=== PATIENT | male | born 1945 | race Caucasian/White ===

== ENCOUNTER 2017-03-11 09:05 | Emergency (ER) | payer MEDICARE ==
[~2017-03-11] VITALS: Ht 182.9 cm; Wt 111.1 kg
[2017-03-11] MEDS ORDERED: IV NORMAL SALINE 1000ML BAG 1,000 ML IV SCH (10:00)
[2017-03-11 10:06] LABS: BASO % 1 % (0-3); EOS % 5 % (0-3); HEMATOCRIT 42.9 % (39.0-53.0); HEMOGLOBIN 14.9 g/dL (13.0-17.5); LYMPH # 2.1 x10^3/uL (1.0-4.8); LYMPH % 35 % (24-48); MEAN CORPUSCULAR HEMOGLOBIN 32 pg (25-35); MEAN CORPUSCULAR HGB CONC 35 g/dL (31-37); MEAN CORPUSCULAR VOLUME 91 fL (79-100); MONO % 10 % (0-9); NEUT % 49 % (31-73); PLATELET COUNT 236 x10^3/uL (140-400); RED BLOOD COUNT 4.72 x10^6/uL (4.30-5.70); RED CELL DISTRIBUTION WIDTH 13.8 % (11.5-14.5); WHITE BLOOD COUNT 5.9 x10^3/uL (4.0-11.0)
[2017-03-11] MEDS ORDERED: ASPIRIN CHEWABLE 81 MG TABLET. PO ONE (10:15)
--- NOTE | 2017-03-11 10:18 | RAD ---
Examination: Single frontal view the chest History: History of chest pain, shortness of breath Comparison: 02/18/2004 Findings: The cardiomediastinal silhouette grossly appears unremarkable. Minimal bibasal lung interstitial changes grossly similar to prior exam likely chronic. Impression: 1. No acute cardiopulmonary findings.
[2017-03-11 10:20] LABS: CALCIUM 8.7 mg/dL (8.5-10.1); CREATININE 0.9 mg/dL (0.7-1.3); GFR 82.7; POTASSIUM 4.2 mmol/L (3.5-5.1)
[2017-03-11 10:25] LABS: ALBUMIN 3.5 g/dL (3.4-5.0); DIRECT BILIRUBIN 0.2 mg/dL (0.0-0.2); MAGNESIUM 1.8 mg/dL (1.8-2.4); TOTAL BILIRUBIN 0.5 mg/dL (0.2-1.0); TOTAL PROTEIN 6.8 g/dL (6.4-8.2)
--- NOTE | 2017-03-11 10:26 | PHYS DOC ---
Past Medical History Past Medical History: Pneumonia, Other Additional Past Medical Histor: SEASONAL ALLERGIES,HAND TREMORS,TBI Past Surgical History: Appendectomy, Tonsillectomy, Other Additional Past Surgical Histo: nicole knee replacement, neck surgery Alcohol Use: Occasionally Drug Use: None Adult General Chief Complaint Chief Complaint: CHEST WALL PAIN HPI HPI Patient is a 71 year old male who presents with complaint of left-sided chest pain. Patient states his symptoms started last night. Patient states that he has had history of occasional pain along the left side of his chest, however he states that it became constant since last night. Patient states that due to worsening symptoms as morning the patient came to the emergency department for further evaluation. The patient denies any associated nausea or sweating but states he has had associated shortness of breath with his symptoms. Patient denies any significant history of cardiac disease. Patient states he currently follows a Dr. Melton for primary care and states that he just recently switched to him within the last few months. Patient states that currently his pain as 8 out of 10. Patient states his pain worsens when he takes a deep breath but denies any pain with movement. Patient does admit to history of hiatal hernia and states that he tried taking Gaviscon with no relief in symptoms. Review of Systems Review of Systems Constitutional: Denies fever or chills [] Eyes: Denies change in visual acuity, redness, or eye pain [] HENT: Denies nasal congestion or sore throat [] Respiratory: Denies cough or shortness of breath [] Cardiovascular: Chest pain, denies edema [] GI: Denies abdominal pain, nausea, vomiting, bloody stools or diarrhea [] : Denies dysuria or hematuria [] Musculoskeletal: Denies back pain or joint pain [] Integument: Denies rash or skin lesions [] Neurologic: Denies headache, focal weakness or sensory changes [] Endocrine: Denies polyuria or polydipsia [] Current Medications Current Medications Current Medications Medications (Trade) Dose Ordered Sig/Patricia Start Time Stop Time Status Last Admin Dose Admin Aspirin (Children'S Aspirin) 324 mg 1X ONCE 03/11/17 10:15 03/11/17 10:16 DC 03/11/17 10:12 324 MG Fentanyl Citrate (Fentanyl 2ml Vial) 50 mcg PRN Q15MIN PRN 03/11/17 10:45 03/12/17 10:44 03/11/17 10:58 50 MCG Multi-Ingredient Mouthwash/Gargle (Gi Cocktail Single Dose) 15 ml 1X ONCE 03/11/17 11:00 03/11/17 11:01 DC 03/11/17 10:54 15 ML Ondansetron HCl (Zofran) 4 mg 1X ONCE 03/11/17 11:00 03/11/17 11:01 DC 03/11/17 10:55 4 MG Sodium Chloride 1,000 ml @ 100 mls/hr Q10H 03/11/17 10:00 03/11/17 19:59 03/11/17 10:12 100 MLS/HR Allergies Allergies Allergies Coded Allergies Type Severity Reaction Last Updated Verified No Known Drug Allergies 08/19/14 No Physical Exam Physical Exam Constitutional: Well developed, well nourished, no acute distress, non-toxic appearance. [] HENT: Normocephalic, atraumatic, bilateral external ears normal, oropharynx moist, no oral exudates, nose normal. [] Eyes: PERRLA, EOMI, conjunctiva normal, no discharge. [] Neck: Normal range of motion, no tenderness, supple, no stridor. [] Cardiovascular:Heart rate regular rhythm, no murmur [] Lungs & Thorax: Bilateral breath sounds clear to auscultation [] Abdomen: Bowel sounds normal, soft, no tenderness, no masses, no pulsatile masses. [] Skin: Warm, dry, no erythema, no rash. [] Back: No tenderness, no CVA tenderness. [] Extremities: No tenderness, no cyanosis, no clubbing, ROM intact, no edema. [] Neurologic: Alert and oriented X 3, normal motor function, normal sensory function, no focal deficits noted. [] Current Patient Data Vital Signs Vital Signs Date Time Temp Pulse Resp B/P (MAP) Pulse Ox O2 Delivery O2 Flow Rate FiO2 03/11/17 13:47 60 18 142/77 (98) 95 Room Air 03/11/17 09:14 97.4 97.4 Lab Values Laboratory Tests Test 03/11/17 09:23 03/11/17 13:29 White Blood Count 5.9 x10^3/uL (4.0-11.0) Red Blood Count 4.72 x10^6/uL (4.30-5.70) Hemoglobin 14.9 g/dL (13.0-17.5) Hematocrit 42.9 % (39.0-53.0) Mean Corpuscular Volume 91 fL (79-100) Mean Corpuscular Hemoglobin 32 pg (25-35) Mean Corpuscular Hemoglobin Concent 35 g/dL (31-37) Red Cell Distribution Width 13.8 % (11.5-14.5) Platelet Count 236 x10^3/uL (140-400) Neutrophils (%) (Auto) 49 % (31-73) Lymphocytes (%) (Auto) 35 % (24-48) Monocytes (%) (Auto) 10 % (0-9) H Eosinophils (%) (Auto) 5 % (0-3) H Basophils (%) (Auto) 1 % (0-3) Neutrophils # (Auto) 2.9 x10^3uL (1.8-7.7) Lymphocytes # (Auto) 2.1 x10^3/uL (1.0-4.8) Monocytes # (Auto) 0.6 x10^3/uL (0.0-1.1) Eosinophils # (Auto) 0.3 x10^3/uL (0.0-0.7) Basophils # (Auto) 0.0 x10^3/uL (0.0-0.2) Sodium Level 137 mmol/L (136-145) Potassium Level 4.2 mmol/L (3.5-5.1) Chloride Level 101 mmol/L (98-107) Carbon Dioxide Level 25 mmol/L (21-32) Anion Gap 11 (6-14) Blood Urea Nitrogen 20 mg/dL (8-26) Creatinine 0.9 mg/dL (0.7-1.3) Estimated GFR (Cockcroft-Gault) 82.7 Glucose Level 145 mg/dL (70-99) H Calcium Level 8.7 mg/dL (8.5-10.1) Magnesium Level 1.8 mg/dL (1.8-2.4) Total Bilirubin 0.5 mg/dL (0.2-1.0) Direct Bilirubin 0.2 mg/dL (0.0-0.2) Aspartate Amino Transferase (AST) 26 U/L (15-37) Alanine Aminotransferase (ALT) 21 U/L (16-63) Alkaline Phosphatase 94 U/L (46-116) Creatine Kinase 121 U/L (39-308) 103 U/L (39-308) Creatine Kinase MB (Mass) 1.8 ng/mL (0.0-3.6) 1.3 ng/mL (0.0-3.6) Creatine Kinase MB Relative Index 1.5 % (0-4) 1.3 % (0-4) Troponin I Quantitative < 0.017 ng/mL (0.000-0.055) < 0.017 ng/mL (0.000-0.055) UY-Aop-J-Type Natriuretic Peptide 49 pg/mL (0-124) Total Protein 6.8 g/dL (6.4-8.2) Albumin 3.5 g/dL (3.4-5.0) Lipase 188 U/L (73-393) Laboratory Tests 03/11/17 09:23 Laboratory Tests 03/11/17 09:23 EKG EKG Interpreted by me: Heart rate 66, sinus rhythm, left axis deviation, no acute ST elevations or depressions [] Radiology/Procedures Radiology/Procedures [facility] [address] [place] [address] IMAGING REPORT Signed PATIENT: KEESHA SEARS ACCOUNT: [id number] : 1945 LOCATION: ER AGE: 71 SEX: M EXAM STATUS: PRE ER ORD. PHYSICIAN: MARIANNE CARMICHAEL MD REASON: chest pain PROCEDURE: PORTABLE CHEST 1V Examination: Single frontal view the chest History: History of chest pain, shortness of breath Comparison: 02/18/2004 Findings: The cardiomediastinal silhouette grossly appears unremarkable. Minimal bibasal lung interstitial changes grossly similar to prior exam likely chronic. Impression: 1. No acute cardiopulmonary findings. DICTATED and SIGNED BY: RAJESH LOJA MD DATE: 03/11/17 1014 CC: MARIANNE CARMICHAEL MD; NICHELLE RIDDLE MD ~ [] Course & Med Decision Making Course & Med Decision Making Pertinent Labs and Imaging studies reviewed. (See chart for details) Patient's symptoms were treated with GI cocktail, fentanyl, Zofran, and aspirin. On reevaluation, patient states that his pain has almost completely resolved. I spoke with Dr. Tomlin of cardiology who came and evaluated the patient in the emergency department. The patient told Dr. Tomlin that he would prefer to go home as he is feeling better at this time. Dr. Tomlin recommended that the patient have a second set of cardiac enzymes completed and if negative the patient could go home with close follow-up. This was completed in the emergency department as requested approximate 4 hours apart from the initial draw. Patient's onset of symptoms started more than 12 hours ago. Due to consecutive negative troponins over this time., The patient's symptoms appear atypical for ACS. The patient will be discharged home as requested with recommended follow-up in the next 2-3 days for reevaluation by cardiology and need for potential cardiac stress testing. Advised return emergency department for any worsening symptoms. Patient voiced understanding and in agreement with treatment plan. Dragon Disclaimer Dragon Disclaimer This electronic medical record was generated, in whole or in part, using a voice recognition dictation system. Departure Departure Impression: Primary Impression: Atypical chest pain Disposition: 01 HOME, SELF-CARE Condition: IMPROVED Referrals: RENAE MELTON MD, PRASHANTH S MD Patient Instructions: Chest Pain (Nonspecific) Additional Instructions: Follow-up with cardiology in the next 2 days for reevaluation and outpatient cardiac stress testing. Return to the emergency department for any worsening symptoms. Scripts Aspirin (ASPIRIN) 81 Mg Tab.chew 1 TAB PO DAILY, #30 TAB 0 Refills Prov: MARIANNE CARMICHAEL MD 03/11/17 MARIANNE CARMICHAEL MD March 11, 2017 10:26
[2017-03-11 10:34] LABS: CKMB MASS 1.8 ng/mL (0.0-3.6)
[2017-03-11] MEDS ORDERED: fentaNYL PF VIAL 100 MCG/2 ML VIAL IV PRN (10:45)
[2017-03-11] MEDS ORDERED: LIDO:MAALOX:DONNATAL 1:1:1 15 ML SINGLE DOSE SWSW ONE (11:00)
[2017-03-11] MEDS ORDERED: ONDANSETRON PF 4 MG/2 ML VIAL. IV ONE (11:00)
--- NOTE | 2017-03-11 11:59 | PDOC2 ---
CARDIOLOGY CONSULT NOTE CHEIF COMPLAINT: back pain,chest pain Problems: HPI: Pleasant 71 y.o man presenting with back pain and epigastric pain. He has had back pain x 3 days over the left lower back and this has progressed towards his shoulder. Appears to be MSK pain per his description. Today also noted epigastric discomfort that did not resolve with gaviscon. Denies any syncope or palpitations. Pain the back is worsened with deep breaths. Pain in the epigastric region is unchanged with rest or activity. No associated diaphoresis, nausea, vomiting. Reports compliance with minimal meds. No recent exertional dyspnea or angina. No prior CV issues. PMHX: Resting tremors. allergies Hiatal hernia SOCHX: Remote cigar smoker no excessive alcohol use. No illicits. 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 FAMHX: NC CURRENT MEDS: Current Medications Medications (Trade) Dose Ordered Sig/Patricia Start Time Stop Time Status Last Admin Dose Admin Aspirin (Children'S Aspirin) 324 mg 1X ONCE 03/11/17 10:15 03/11/17 10:16 DC 03/11/17 10:12 324 MG Fentanyl Citrate (Fentanyl 2ml Vial) 50 mcg PRN Q15MIN PRN 03/11/17 10:45 03/12/17 10:44 03/11/17 10:58 50 MCG Multi-Ingredient Mouthwash/Gargle (Gi Cocktail Single Dose) 15 ml 1X ONCE 03/11/17 11:00 03/11/17 11:01 DC 03/11/17 10:54 15 ML Ondansetron HCl (Zofran) 4 mg 1X ONCE 03/11/17 11:00 03/11/17 11:01 DC 03/11/17 10:55 4 MG Sodium Chloride 1,000 ml @ 100 mls/hr Q10H 03/11/17 10:00 03/11/17 19:59 03/11/17 10:12 100 MLS/HR ALLERGIES: Allergies Coded Allergies Type Severity Reaction Last Updated Verified No Known Drug Allergies 08/19/14 No ROS: Negative for 08/11 systems reviewed unless otherwise noted above. PHYSICAL EXAM: Vital Signs: Vital Signs Date Time Temp Pulse Resp B/P (MAP) Pulse Ox O2 Delivery O2 Flow Rate FiO2 03/11/17 10:58 16 95 Room Air 03/11/17 09:14 97.4 74 151/85 (107) 97.4 Physical Exam: Gen:A/O x 3. NAd CVS: RRR, no m/r/g PULM: ctab ABD Soft, epigastric discomfort to deep palpitation. CHEST: No rashes. EXT: No edema. NEURO:Non -focal exam. PSYCH: Normal mood and affect. DIAGNOSTIC TESTING: EKG: SR, NSST changes. No acute findings. CXR negative Labs wnl including troponin. ASSESSMENT: 1. Non-cardiac chest pain PLAN: 1. EKG, biomarkers and symptoms do not represent cardiac chest pain. 2. Pain improved after GI cocktail so far. 3. Given his age and new onset of symptoms, would favor ruling out ACS with repeat troponins in 6 hours or so. If negative, then ok to DC from CV perspective with close f/u with PCP for consideration of ischemic testing. ? PUD, defer to ER/PCP. Thanks for consult. If patient chooses to stay in the hospital for a full ACS rule out, then will plan for stress test in a.OLGA Moscoso MD March 11, 2017 11:59
--- NOTE | 2017-03-11 12:56 | EKG ---
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
[2017-03-11 13:47] VITALS: BP 142/77
[2017-03-11 14:18] LABS: CKMB MASS 1.3 ng/mL (0.0-3.6)
[2017-03-11] MEDS ORDERED: ASPI81TA2 PO (14:22)
== END 2017-03-11 14:31 | disposition home or self-care (01) ==
LOC: ER 10:34
DX: R07.89 Other chest pain (principal); R06.02 Shortness of breath; Z87.820 Personal history of traumatic brain injury; Z79.82 Long term (current) use of aspirin
CPT/HCPCS: 36415; 71010; 80048; 80076; 82553; 83690; 83735; 83880; 84484; 85027; 93005; 96361; 96374; 96375; 99285; J2405; J3010; J7030

== ENCOUNTER 2017-09-07 21:50 | Emergency (ER) | payer MEDICARE, OTHER ==
[~2017-09-07] VITALS: Ht 177.8 cm; Wt 111.1 kg
[2017-09-07 21:50] VITALS: BP 131/76
[~2017-09-07 21:50] MED LIST: ASPI-630 PO
[2017-09-07] MEDS ORDERED: LIDOCAINE 1%/EPI 1:100,000 20 ML VIAL. ONE (22:29)
--- NOTE | 2017-09-07 22:29 | PHYS DOC ---
Past Medical History Past Medical History: Pneumonia, Other Additional Past Medical Histor: SEASONAL ALLERGIES,HAND TREMORS,TBI Past Surgical History: Appendectomy, Tonsillectomy, Other Additional Past Surgical Histo: nicole knee replacement, neck surgery Alcohol Use: Occasionally Drug Use: None Adult General Chief Complaint Chief Complaint: MECHANICAL FALL HPI HPI Patient is a 71 year old male who presents with complaint of head injury. The patient was brought into the emergency department by EMS. The patient suffered a fall at a local bar and fell onto the left side of his head. Patient suffered a laceration to his scalp. Patient did not have any reported loss of consciousness as a result of this fall. The patient was noted to be drinking this evening and patient appears to be intoxicated at this time. The patient had a c-collar placed prior to my evaluation, however the patient remove this on his own stating he did not need this. The patient is stating that he wants to go home. Patient denies any other injuries at this time. Review of Systems Review of Systems Constitutional: Denies fever or chills [] Eyes: Denies change in visual acuity, redness, or eye pain [] HENT: Laceration to left parietal scalp[] Respiratory: Denies cough or shortness of breath [] Cardiovascular: Denies chest pain or edema[] GI: Denies abdominal pain, nausea, vomiting, bloody stools or diarrhea [] : Denies dysuria or hematuria [] Musculoskeletal: Denies back pain or joint pain [] Integument: Denies rash or skin lesions [] Neurologic: Denies headache, focal weakness or sensory changes [] All other systems were reviewed and found to be within normal limits, except as documented in this note. Current Medications Current Medications Current Medications Medications (Trade) Dose Ordered Sig/Patricia Start Time Stop Time Status Last Admin Dose Admin Lidocaine/ Epinephrine (Xylocaine 1%-Epi 1:100,000) 20 ml STK-MED ONCE 09/07/17 22:29 09/07/17 22:30 DC Allergies Allergies Allergies Coded Allergies Type Severity Reaction Last Updated Verified No Known Drug Allergies 08/19/14 No Physical Exam Physical Exam Constitutional: Alert, afebrile, alcoholic halitosis present, no acute distress. [] HENT: Normocephalic, 2-1/2 cm L-shaped laceration to left parietal scalp, bilateral external ears normal, oropharynx moist, no oral exudates, nose normal. [] Eyes: PERRLA, EOMI, conjunctiva normal, no discharge. [] Neck: Normal range of motion, no tenderness, supple, no stridor. [] Cardiovascular:Heart rate regular rhythm, no murmur [] Lungs & Thorax: Bilateral breath sounds clear to auscultation [] Abdomen: Bowel sounds normal, soft, no tenderness, no masses, no pulsatile masses. [] Skin: Warm, dry, no erythema, no rash. [] Back: No tenderness, no CVA tenderness. [] Extremities: No tenderness, no cyanosis, no clubbing, ROM intact, no edema. [] Neurologic: Alert, oriented to self, disoriented to events, normal motor function, normal sensory function, no focal deficits noted. [] Current Patient Data Vital Signs Vital Signs Date Time Temp Pulse Resp B/P (MAP) Pulse Ox O2 Delivery O2 Flow Rate FiO2 09/07/17 21:50 97.9 79 20 131/76 (94) 93 Room Air 97.9 EKG EKG Not performed[] Radiology/Procedures Radiology/Procedures [facility] [address] [place] [address] IMAGING REPORT Signed PATIENT: KEESHA SEARS ACCOUNT: [id number] : 1945 LOCATION: ER AGE: 71 SEX: M EXAM STATUS: REG ER ORD. PHYSICIAN: MARIANNE CARMICHAEL MD REASON: fall, left-sided head injury, intoxicated PROCEDURE: CT HEAD AND CERVICAL SPINE WO CT scan of the head without contrast 09/07/2017 Clinical History: Head injury. Laceration to left frontal parietal scalp. Technique: Unenhanced, contiguous, 5 mm axial sections were obtained through the head. One or more of the following individualized dose reduction techniques were utilized for this study: 1. Automated exposure control. 2. Adjustment of the mA and/or kV according to patient size. 3. Use of iterative reconstruction technique. Findings: No previous imaging studies are available for comparison. There is generalized parenchymal atrophy. Areas of decreased attenuation are seen within the periventricular and subcortical white matter of both cerebral hemispheres consistent with areas of small vessel ischemic disease. No acute parenchymal abnormality is seen. No extra-axial fluid collection is noted. No skull fracture is seen. Soft tissue swelling and skin savanah are seen involving the left frontoparietal scalp consistent with the patient's history of a laceration to this area. Impression: No acute intracranial abnormality is seen. CT scan of the cervical spine without contrast 09/07/2017 Clinical history: Fall with neck injury. Technique: Unenhanced, contiguous, 0.625 mm axial sections were obtained through the cervical spine. Axial, coronal and sagittal reconstructed images were obtained. One or more of the following individualized dose reduction techniques were utilized for this study: 1. Automated exposure control. 2. Adjustment of the mA and/or kV according to patient size. 3. Use of iterative reconstruction technique. Findings: Sagittal and coronal reconstructed images demonstrate minimal lateral curvature of the cervical spine convex to the left. There is reversal of the normal cervical lordosis. Degenerative changes consisting of disc space narrowing, vertebral endplate sclerosis and mild to moderate anterior and posterior vertebral body osteophyte formation are seen throughout the cervical disc spaces. Fusion across the C5-6 and C6-7 disc spaces is noted. No fracture or subluxation of the cervical vertebrae is seen. Degenerative changes are seen involving the uncovertebral and facet joints throughout the cervical disc spaces. Impression: No fracture or subluxation of the cervical vertebra is identified. Electronically signed by: Sha Swann MD (09/07/2017 11:15 PM) [facility] DICTATED and SIGNED BY: SHA SWANN MD DATE: 09/07/17 230 CC: MARIANNE CARIMCHAEL MD; RENAE ARMSTRONG MD ~ [] Course & Med Decision Making Course & Med Decision Making Pertinent Labs and Imaging studies reviewed. (See chart for details) The patient's scalp laceration was repaired as outlined in the procedure note. Patient's CT imaging negative for severe acute injury. The patient was helped with securing transportation to return home. Patient was counseled on appropriate use of alcohol. Patient voiced understanding of this. Advised follow -up in 7 days for removal of patient's savanah. Advised return emergency department for any worsening symptoms. Patient voiced understanding and in agreement with treatment plan.[] Dragon Disclaimer Dragon Disclaimer This electronic medical record was generated, in whole or in part, using a voice recognition dictation system. Laceration Repair Lac Repair Indication: Left parietal scalp laceration Procedure: The patient was placed in the appropriate position and anesthesia around the laceration was achieved with injection of lidocaine 1% with epinephrine. The area was then cleansed with saline soaked gauze. The laceration was closed using skin savanah. Total repaired wound length: 2.5 cm. Other Items: Stable count: 4 The patient tolerated the procedure without difficulty. Complications: None. Departure Departure Impression: Primary Impression: Closed head injury Additional Impressions: Scalp laceration Alcohol intoxication Disposition: 01 HOME, SELF-CARE Condition: IMPROVED Referrals: RENAE ARMSTRONG MD (PCP) Patient Instructions: Alcohol Intoxication, Head Injury, Adult, Laceration Care , Adult, Staple Care and Removal Additional Instructions: Follow-up in 7 days with your primary doctor for removal of your savanah. Return to the emergency department for any worsening symptoms. Problem Qualifiers Primary Impression: Closed head injury Encounter type: initial encounter Qualified Codes: S09.90XA - Unspecified injury of head, initial encounter Additional Impressions: Scalp laceration Encounter type: initial encounter Qualified Codes: S01.01XA - Laceration without foreign body of scalp, initial encounter Alcohol intoxication Complication of substance-induced condition: uncomplicated Qualified Codes: F10.920 - Alcohol use, unspecified with intoxication, uncomplicated MARIANNE CARMICHAEL MD Sep 07, 2017 22:28
[2017-09-07] MEDS ORDERED: LIDOCAINE 1%/EPI 1:100,000 20 ML VIAL. INJ ONE (23:00)
--- NOTE | 2017-09-07 23:18 | RAD ---
CT scan of the head without contrast 09/07/2017 Clinical History: Head injury. Laceration to left frontal parietal scalp. Technique: Unenhanced, contiguous, 5 mm axial sections were obtained through the head. One or more of the following individualized dose reduction techniques were utilized for this study: 1. Automated exposure control. 2. Adjustment of the mA and/or kV according to patient size. 3. Use of iterative reconstruction technique. Findings: No previous imaging studies are available for comparison. There is generalized parenchymal atrophy. Areas of decreased attenuation are seen within the periventricular and subcortical white matter of both cerebral hemispheres consistent with areas of small vessel ischemic disease. No acute parenchymal abnormality is seen. No extra-axial fluid collection is noted. No skull fracture is seen. Soft tissue swelling and skin savanah are seen involving the left frontoparietal scalp consistent with the patient's history of a laceration to this area. Impression: No acute intracranial abnormality is seen. CT scan of the cervical spine without contrast 09/07/2017 Clinical history: Fall with neck injury. Technique: Unenhanced, contiguous, 0.625 mm axial sections were obtained through the cervical spine. Axial, coronal and sagittal reconstructed images were obtained. One or more of the following individualized dose reduction techniques were utilized for this study: 1. Automated exposure control. 2. Adjustment of the mA and/or kV according to patient size. 3. Use of iterative reconstruction technique. Findings: Sagittal and coronal reconstructed images demonstrate minimal lateral curvature of the cervical spine convex to the left. There is reversal of the normal cervical lordosis. Degenerative changes consisting of disc space narrowing, vertebral endplate sclerosis and mild to moderate anterior and posterior vertebral body osteophyte formation are seen throughout the cervical disc spaces. Fusion across the C5-6 and C6-7 disc spaces is noted. No fracture or subluxation of the cervical vertebrae is seen. Degenerative changes are seen involving the uncovertebral and facet joints throughout the cervical disc spaces. Impression: No fracture or subluxation of the cervical vertebra is identified. Electronically signed by: Sha Swann MD (09/07/2017 11:15 PM) [facility]
== END 2017-09-08 00:52 | disposition home or self-care (01) ==
LOC: ER 21:50
DX: S01.01XA Laceration without foreign body of scalp, initial encounter (principal); F10.129 Alcohol abuse with intoxication, unspecified; W18.39XA Other fall on same level, initial encounter; Y93.89 Activity, other specified; Y99.8 Other external cause status; Y92.89 Other specified places as the place of occurrence of the external cause
CPT/HCPCS: 12001; 70450; 72125; 99284; J3490

== ENCOUNTER 2018-03-11 11:07 | Emergency (ER) | payer MEDICARE ==
[2018-03-11 12:11] LABS: ADD MAN DIFF? NO
[2018-03-11 12:13] LABS: BASO # 0.1 x10^3/uL (0.0-0.2); BASO % 1 % (0-3); EOS # 0.3 x10^3/uL (0.0-0.7); EOS % 4 % (0-3); HEMATOCRIT 43.4 % (39.0-53.0); LYMPH # 2.5 x10^3/uL (1.0-4.8); LYMPH % 38 % (24-48); MEAN CORPUSCULAR HEMOGLOBIN 31 pg (25-35); MEAN CORPUSCULAR HGB CONC 35 g/dL (31-37); MEAN CORPUSCULAR VOLUME 90 fL (79-100); MONO # 0.5 x10^3/uL (0.0-1.1); MONO % 8 % (0-9); NEUT # 3.3 x10^3uL (1.8-7.7); NEUT % 50 % (31-73); PLATELET COUNT 275 x10^3/uL (140-400); RED CELL DISTRIBUTION WIDTH 13.9 % (11.5-14.5); WHITE BLOOD COUNT 6.6 x10^3/uL (4.0-11.0)
[2018-03-11] MEDS ORDERED: MORPHINE SULFATE 4 MG/ML DISP.SYRIN. IV ×2 (12:15)
[2018-03-11 12:23] LABS: ANION GAP 8 (6-14); BLOOD UREA NITROGEN 12 mg/dL (8-26); CALCIUM 8.8 mg/dL (8.5-10.1); CARBON DIOXIDE 27 mmol/L (21-32); CHLORIDE 104 mmol/L (98-107); CREATININE 0.9 mg/dL (0.7-1.3); GFR 82.5; GLUCOSE 101 mg/dL (70-99); POTASSIUM 4.4 mmol/L (3.5-5.1); SODIUM 139 mmol/L (136-145)
[2018-03-11 12:32] LABS: TROPONINI < 0.017 ng/mL (0.000-0.055)
[2018-03-11 12:55] LABS: TROPONIN BY ISTAT 0.01 ng/ml (<0.08)
[2018-03-11] MEDS ORDERED: CONTRAST GIVEN MC ×2 (13:00)
[2018-03-11] MEDS: IOHEXOL 300 MG/ML 100ML VIAL. IV ×2 (13:16)
== END 2018-03-11 15:11 | disposition home or self-care (01) ==
LOC: ER 11:07
DX: M54.6 Pain in thoracic spine (principal); R07.89 Other chest pain; R05 Cough; M48.061 Spinal stenosis, lumbar region without neurogenic claudication; M47.896 Other spondylosis, lumbar region
CPT/HCPCS: 36415; 71045; 71275; 74174; 80048; 84484; 85025; 85379; 93005; 99285-25; Q9967

== ENCOUNTER 2018-08-29 08:33 | Emergency (ER) | payer MEDICARE ==
[~2018-08-29] VITALS: Ht 182.9 cm; Wt 113.4 kg
[~2018-08-29 08:33] MED LIST changes: +HYDR-2762 PO; +IBUP-1060 PO
--- NOTE | 2018-08-29 08:55 | EKG ---
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
[2018-08-29] MEDS ORDERED: LIDO:MAALOX 1:1 20 ML SINGLE DOSE. SWSW ONE (09:00)
[2018-08-29 09:33] LABS: CALCIUM 9.2 mg/dL (8.5-10.1); POTASSIUM 4.7 mmol/L (3.5-5.1)
[2018-08-29 09:38] LABS: BASO # 0.1 x10^3/uL (0.0-0.2); BASO % 1 % (0-3); EOS # 0.2 x10^3/uL (0.0-0.7); EOS % 4 % (0-3); HEMATOCRIT 45.6 % (39.0-53.0); HEMOGLOBIN 15.7 g/dL (13.0-17.5); LYMPH # 2.2 x10^3/uL (1.0-4.8); LYMPH % 36 % (24-48); MEAN CORPUSCULAR HEMOGLOBIN 32 pg (25-35); MEAN CORPUSCULAR HGB CONC 34 g/dL (31-37); MEAN CORPUSCULAR VOLUME 92 fL (79-100); MONO # 0.7 x10^3/uL (0.0-1.1); MONO % 11 % (0-9); NEUT % 49 % (31-73); PLATELET COUNT 241 x10^3/uL (140-400); RED BLOOD COUNT 4.93 x10^6/uL (4.30-5.70); RED CELL DISTRIBUTION WIDTH 14.1 % (11.5-14.5); WHITE BLOOD COUNT 6.2 x10^3/uL (4.0-11.0)
--- NOTE | 2018-08-29 09:38 | RAD ---
PORTABLE CHEST 1V History: EPIGASTRIC AND LT SIDED CHEST PAIN X 2 DAYS, history of hiatal hernia Comparison: March 11, 2018 Findings: 2 AP portable views of the chest are submitted. There is no pleural fluid, pneumothorax, infiltrate. Heart size is stable. Impression: 1. There is no radiographic evidence of acute cardiopulmonary disease. Electronically signed by: Karl Blanco MD (08/29/2018 9:36 AM) [id number]
[2018-08-29 09:39] LABS: ALBUMIN 3.9 g/dL (3.4-5.0); ALBUMIN/GLOBULIN RATIO 1.1 (1.0-1.7); TOTAL BILIRUBIN 0.6 mg/dL (0.2-1.0); TOTAL PROTEIN 7.5 g/dL (6.4-8.2)
[2018-08-29 09:45] VITALS: BP 157/79
[2018-08-29 09:51] LABS: PROTHROMBIN TIME PATIENT 13.5 SEC (11.7-14.0)
[2018-08-29 09:57] LABS: D-DIMER 0.47 ug/mlFEU (0.00-0.50)
--- NOTE | 2018-08-29 11:11 | PHYS DOC ---
Past Medical History Past Medical History: GERD, Hypertension, Pneumonia, Other Additional Past Medical Histor: SEASONAL ALLERGIES,HAND TREMORS,TBI, hiatal hernia Past Surgical History: Appendectomy, Tonsillectomy, Other Additional Past Surgical Histo: nicole knee replacement, neck surgery Alcohol Use: Occasionally Drug Use: None Adult General Chief Complaint Chief Complaint: ABDOMINAL PAIN HPI HPI Patient is a 72 year old male who presents with chief complaint of "I either have pneumonia or my hiatal hernia is acting up again" Patient is complaining of 2 days of burning pain epigastric area as well as some sharp pain underneath the left nipple that radiates to the scapula it's constant in nature it is not exertional it is worse with deep breathing. He denies any anginal symptoms per se no shortness of breath he has had a dry cough for about a month no fever symptoms are worse with palpation and coughing and deep breathing. Review of Systems Review of Systems Constitutional: Denies fever or chills [] Eyes: Denies change in visual acuity, redness, or eye pain [] HENT: Denies nasal congestion or sore throat [] Respiratory: Denies shortness of breath [] Cardiovascular: No additional information not addressed in HPI [] GI: Denies nausea, vomiting, bloody stools or diarrhea [] Musculoskeletal: All other systems were reviewed and found to be within normal limits, except as documented in this note. Current Medications Current Medications Current Medications Medications (Trade) Dose Ordered Sig/Patricia Start Time Stop Time Status Last Admin Dose Admin Multi-Ingredient Mouthwash/Gargle (Gi Cocktail) 20 ml 1X ONCE 08/29/18 09:00 08/29/18 09:01 DC 08/29/18 09:34 20 ML Allergies Allergies Allergies Coded Allergies Type Severity Reaction Last Updated Verified No Known Drug Allergies 08/19/14 No Physical Exam Physical Exam Constitutional: Well developed, well nourished, no acute distress, non-toxic appearance. [] HENT: Normocephalic, atraumatic, bilateral external ears normal, oropharynx moist, no oral exudates, nose normal. [] Eyes: PERRLA, EOMI, conjunctiva normal, no discharge. [] Neck: Normal range of motion, no tenderness, supple, no stridor. [] Cardiovascular:Heart rate regular rhythm, no murmur []chest wall appears will tenderness is noted just above the xiphoid process Lungs & Thorax: Bilateral breath sounds clear to auscultation [] Abdomen: Bowel sounds normal, soft, no tenderness, no masses, no pulsatile masses. [] Skin: Warm, dry, no erythema, no rash. [] Back: No tenderness, no CVA tenderness. [] Extremities: No tenderness, no cyanosis, no clubbing, ROM intact, no edema. [] Neurologic: Alert and oriented X 3, normal motor function, normal sensory function, no focal deficits noted. [] Psychologic: Affect normal, judgement normal, mood normal. [] Current Patient Data Vital Signs Vital Signs Date Time Temp Pulse Resp B/P (MAP) Pulse Ox O2 Delivery O2 Flow Rate FiO2 08/29/18 09:45 68 18 157/79 (105) 96 Room Air 08/29/18 08:42 97.6 97.6 Lab Values Laboratory Tests Test 08/29/18 09:10 White Blood Count 6.2 x10^3/uL (4.0-11.0) Red Blood Count 4.93 x10^6/uL (4.30-5.70) Hemoglobin 15.7 g/dL (13.0-17.5) Hematocrit 45.6 % (39.0-53.0) Mean Corpuscular Volume 92 fL (79-100) Mean Corpuscular Hemoglobin 32 pg (25-35) Mean Corpuscular Hemoglobin Concent 34 g/dL (31-37) Red Cell Distribution Width 14.1 % (11.5-14.5) Platelet Count 241 x10^3/uL (140-400) Neutrophils (%) (Auto) 49 % (31-73) Lymphocytes (%) (Auto) 36 % (24-48) Monocytes (%) (Auto) 11 % (0-9) H Eosinophils (%) (Auto) 4 % (0-3) H Basophils (%) (Auto) 1 % (0-3) Neutrophils # (Auto) 3.0 x10^3uL (1.8-7.7) Lymphocytes # (Auto) 2.2 x10^3/uL (1.0-4.8) Monocytes # (Auto) 0.7 x10^3/uL (0.0-1.1) Eosinophils # (Auto) 0.2 x10^3/uL (0.0-0.7) Basophils # (Auto) 0.1 x10^3/uL (0.0-0.2) Prothrombin Time 13.5 SEC (11.7-14.0) Prothrombin Time INR 1.1 (0.8-1.1) D-Dimer (Leigh Ann) 0.47 ug/mlFEU (0.00-0.50) Sodium Level 140 mmol/L (136-145) Potassium Level 4.7 mmol/L (3.5-5.1) Chloride Level 102 mmol/L (98-107) Carbon Dioxide Level 27 mmol/L (21-32) Anion Gap 11 (6-14) Blood Urea Nitrogen 11 mg/dL (8-26) Creatinine 1.0 mg/dL (0.7-1.3) Estimated GFR (Cockcroft-Gault) 73.0 BUN/Creatinine Ratio 11 (6-20) Glucose Level 104 mg/dL (70-99) H Calcium Level 9.2 mg/dL (8.5-10.1) Total Bilirubin 0.6 mg/dL (0.2-1.0) Aspartate Amino Transferase (AST) 25 U/L (15-37) Alanine Aminotransferase (ALT) 25 U/L (16-63) Alkaline Phosphatase 92 U/L (46-116) Troponin I Quantitative < 0.017 ng/mL (0.000-0.055) Total Protein 7.5 g/dL (6.4-8.2) Albumin 3.9 g/dL (3.4-5.0) Albumin/Globulin Ratio 1.1 (1.0-1.7) Lipase 132 U/L (73-393) Laboratory Tests 08/29/18 09:10 Laboratory Tests 08/29/18 09:10 EKG EKG []I suspect sinus rhythm I clearly see P waves in V3 the rate is 63 there are no obvious ST changes noted this was interpreted by me time of encounter Radiology/Procedures Radiology/Procedures [] Impressions: History: EPIGASTRIC AND LT SIDED CHEST PAIN X 2 DAYS, history of hiatal hernia Comparison: March 11, 2018 Findings: 2 AP portable views of the chest are submitted. There is no pleural fluid, pneumothorax, infiltrate. Heart size is stable. Impression: 1. There is no radiographic evidence of acute cardiopulmonary disease. Electronically signed by: Karl Blanco MD (08/29/2018 9:36 AM) [id number] Course & Med Decision Making Course & Med Decision Making Pertinent Labs and Imaging studies reviewed. (See chart for details) 72-year-old male with history of hypertension hiatal hernia presenting with burning central epigastric pain is extremely atypical in nature. EKG and troponin were negative h 0 e 0 a 2 r 1 t 0 = heart score is a 3 per prefer outpatient management I really this does not sound cardiac to me at all. Patient is very comfortable- appearing he felt better in the emergency room after a GI cocktail was advised to follow-up with Dr. Melton regarding his symptoms and also regarding his blood pressure he plans to do so. D-dimer was negative this does not sound a dissection or PE to me. Abdomen was nontender patient is well-appearing and safe for outpatient management at this time. Dragon Disclaimer Dragon Disclaimer This electronic medical record was generated, in whole or in part, using a voice recognition dictation system. Departure Departure Impression: Primary Impression: Elevated blood pressure reading Additional Impression: Hiatal hernia Disposition: 01 HOME, SELF-CARE Condition: STABLE Patient Instructions: Chest Pain (Nonspecific), [id number] Additional Instructions: GET BLOOD PRESSURE CHECKED WITHIN ONE MONTH Problem Qualifiers NADIA DAI MD Aug 29, 2018 11:11
== END 2018-08-29 10:45 | disposition home or self-care (01) ==
LOC: ER 08:33
DX: K44.9 Diaphragmatic hernia without obstruction or gangrene (principal); I10 Essential (primary) hypertension; K21.9 Gastro-esophageal reflux disease without esophagitis; Z90.89 Acquired absence of other organs; Z96.653 Presence of artificial knee joint, bilateral
CPT/HCPCS: 36415; 71045; 80053; 83690; 84484; 85025; 85379; 85610; 93005; 99285-25

== ENCOUNTER 2018-12-25 01:12 | Emergency (ER) | payer MEDICARE ==
[~2018-12-25] VITALS: Ht 182.9 cm; Wt 113.4 kg
[~2018-12-25 01:12] MED LIST changes: -HYDR-2762 PO; +HYDR-2765 PO
[2018-12-25 01:23] VITALS: BP 180/94
[2018-12-25] MEDS ORDERED: HYDR-2765 PO (02:16)
[2018-12-25] MEDS ORDERED: AZIT250T PO (02:16)
--- NOTE | 2018-12-25 02:17 | PHYS DOC ---
Past Medical History Past Medical History: GERD, Hypertension, Pneumonia, Other Additional Past Medical Histor: SEASONAL ALLERGIES,HAND TREMORS,TBI, hiatal hernia, SHINGLES Past Surgical History: Appendectomy, Tonsillectomy, Other Additional Past Surgical Histo: nicole knee replacement, neck surgery Alcohol Use: Occasionally Drug Use: None Adult General Chief Complaint Chief Complaint: MECHANICAL FALL [facility] HPI Patient is a 73-year-old male who presents with complaint of right-sided back pain after falling last Sunday onto his back. He states that the pain initially was not very apparent but states that after 2 days he started to have a cough and then started having the back pain. He states the cough had been productive of sputum that had a little bit of blood-tinged to it. He denies any fever. He rates the pain as moderate and states the pain is worsened when he coughs. He denies any nausea or vomiting. He states that the blood-tinged sputum is no longer evident. Review of Systems Review of Systems Constitutional: Denies fever or chills [] Respiratory: Complains of cough without shortness of breath [] Cardiovascular: No additional information not addressed in HPI [] Musculoskeletal: Complains of right posterior chest wall pain [] Allergies Allergies Allergies Coded Allergies Type Severity Reaction Last Updated Verified No Known Drug Allergies 08/19/14 No Physical Exam Physical Exam Constitutional: Well developed, well nourished, no acute distress, non-toxic appearance. [] Neck: Normal range of motion, no tenderness, supple, no stridor. [] Cardiovascular: Regular rate and rhythm[] Lungs & Thorax: Bilateral breath sounds clear to auscultation [] Abdomen: Bowel sounds normal, soft, no tenderness. [] Skin: Warm, dry, no erythema, no rash. [] Back: There is tenderness to palpation in the right sided paraspinal musculature around T7-T10 area with tenderness of the rib angles of the same area. [] Current Patient Data Vital Signs Vital Signs Date Time Temp Pulse Resp B/P (MAP) Pulse Ox O2 Delivery O2 Flow Rate FiO2 12/25/18 01:23 98.3 67 18 180/94 (122) 98 Room Air 98.3 EKG EKG [] Radiology/Procedures Radiology/Procedures [] Impressions: Right-sided rib series demonstrates no acute rib fractures. Course & Med Decision Making Course & Med Decision Making Pertinent Labs and Imaging studies reviewed. (See chart for details) [] Dragon Disclaimer Dragon Disclaimer This electronic medical record was generated, in whole or in part, using a voice recognition dictation system. Departure Departure Impression: Primary Impression: Bronchitis Additional Impression: Chest wall contusion Disposition: 01 HOME, SELF-CARE Condition: STABLE Referrals: RENAE ARMSTRONG MD (PCP) Patient Instructions: Acute Bronchitis, Rib Contusion Scripts Hydrocodone Bit/Acetaminophen (HYDROCODONE-APAP 7.5-325 ) 1 Tab Tablet 1 TAB PO PRN Q6HRS PRN for PAIN, #12 TAB 0 Refills Prov: MI FISHMAN Jr. DO 12/25/18 Azithromycin (ZITHROMAX) 250 Mg Tablet 1 PKG PO UD, #6 TAB Prov: MI FISHMAN Jr. DO 12/25/18 Problem Qualifiers Additional Impression: Chest wall contusion Encounter type: initial encounter Laterality: right Qualified Codes: S20.211A - Contusion of right front wall of thorax, initial encounter MI FISHMAN Jr., DO Dec 25, 2018 02:17
[2018-12-25] MEDS ORDERED: AZITHROMYCIN 250 MG TABLET. ONE (02:25)
[2018-12-25] MEDS ORDERED: HYDROcodone/APAP 7.5/325MG 1 TAB TABLET ONE (02:26)
[2018-12-25] MEDS ORDERED: HYDROcodone/APAP 7.5/325MG 1 TAB TABLET PO ONE (02:30)
[2018-12-25] MEDS ORDERED: AZITHROMYCIN 250 MG TABLET. PO ONE (02:30)
--- NOTE | 2018-12-25 08:13 | RAD ---
RIBS RIGHT AND PA CHEST History: rib pain on the right after fall Comparison: August 29, 2018 Findings: Single view of the chest and 2 additional views right ribs are submitted. There is mild bibasilar atelectasis. There is no pneumothorax or pleural fluid. Heart size is similar. There is again tortuous thoracic aorta. No displaced right rib fracture is identified by radiographs. Impression: 1. No displaced right rib fracture is identified by radiographs. There is bibasilar atelectasis. Electronically signed by: Karl Blanco MD (12/25/2018 8:10 AM) [email or web address]
== END 2018-12-25 02:30 | disposition home or self-care (01) ==
LOC: ER 01:12
DX: S20.211A Contusion of right front wall of thorax, initial encounter (principal); J40 Bronchitis, not specified as acute or chronic; K21.9 Gastro-esophageal reflux disease without esophagitis; I10 Essential (primary) hypertension; Z90.89 Acquired absence of other organs; Z96.653 Presence of artificial knee joint, bilateral
CPT/HCPCS: 71101; 99284; Q0144

== ENCOUNTER 2021-04-17 18:44 | Emergency (ER) | payer MEDICARE ==
[~2021-04-17] VITALS: Ht 182.9 cm; Wt 111.0 kg
[~2021-04-17 18:44] MED LIST changes: +AZIT250T PO
[2021-04-17 19:26] VITALS: BP 161/88
--- NOTE | 2021-04-17 19:32 | PHYS DOC ---
Past Medical History Past Medical History: GERD, Hypertension, Pneumonia, Other Additional Past Medical Histor: SEASONAL ALLERGIES,HAND TREMORS,TBI, hiatal hernia, SHINGLES Past Surgical History: Appendectomy, Tonsillectomy, Other Additional Past Surgical Histo: nicole knee replacement, neck surgery Smoking Status: Former Smoker Alcohol Use: Occasionally Drug Use: None General Adult EDM: Chief Complaint: MECHANICAL FALL HPI: HPI: Patient is a 75 year old male with a past medical history hypertension and GERD presents with a chief complaint of left sided rib pain. Prior to arrival patient was cutting his grass when he he tripped over dog leash and landed on a tree root. Patient left chest struck the tree root. Patient denies hitting his head he denies any loss of consciousness. Patient complains of left-sided rib pain. Pain is exacerbated with shoulder movement and deep breaths. Patient sta matt he feels short of breath. At home patient took ibuprofen with minimal relief of pain. Review of Systems: Review of Systems: Constitutional: Denies fever or chills. [] Eyes: Denies change in visual acuity. [] HENT: Denies nasal congestion or sore throat. [] Respiratory: Denies cough or shortness of breath. [] Cardiovascular: Denies chest pain or edema. [] GI: Denies abdominal pain, nausea, vomiting, bloody stools or diarrhea. [] : Denies dysuria. [] Musculoskeletal: Denies back pain or joint pain. [POSITIVE RIB PAIN] Integument: Denies rash. [] Neurologic: Denies headache, focal weakness or sensory changes. [] Endocrine: Denies polyuria or polydipsia. [] Lymphatic: Denies swollen glands. [] Psychiatric: Denies depression or anxiety. [] Heart Score: C/O Chest Pain: N/A Risk Factors: Risk Factors: DM, Current or recent (<one month) smoker, HTN, HLP, family history of CAD, obesity. Risk Scores: Score 0 - 3: 2.5% MACE over next 6 weeks - Discharge Home Score 4 - 6: 20.3% MACE over next 6 weeks - Admit for Clinical Observation Score 7 - 10: 72.7% MACE over next 6 weeks - Early Invasive Strategies Current Medications: Current Medications Medications (Trade) Dose Ordered Sig/Patricia Start Time Stop Time Status Last Admin Dose Admin Fentanyl Citrate (Fentanyl 2ml Vial) 50 mcg 1X ONCE 6/20/21 19:30 04/17/21 19:31 UNV Allergies: Allergies: Allergies Coded Allergies Type Severity Reaction Last Updated Verified No Known Drug Allergies 08/19/14 No Physical Exam: PE: General: alert, no acute distress. Skin: warm, dry and intact. HENT: bilateral external ears normal, oropharynx moist, nose normal. Head:: Normocephalic, atraumatic. Neck: Trachea midline. Eyes: EOMI, Normal conjunctiva, No drainage CARDIOVASCULAR: Regular rate and rhythm, left-sided chest wall tenderness RESPIRATORY: No respiratory distress, lungs clear Back: Full range of motion. Skin: Warm, dry, no erythema, no rash. MUSCULOSKELETAL: Full range of motion of bilateral upper and lower extremities. GASTROINTESTINAL: Abdomen soft without rebound or guarding. NEUROLOGICAL: Alert and noted to person, place and time. No neurological deficits observed Psychiatric: Cooperative. Normal judgment EKG: EKG: [] Radiology/Procedures: Radiology/Procedures: [] Impression: Exam: Left ribs with PA chest INDICATION: Fall, pain TECHNIQUE: Frontal view of the chest with oblique and lateral views the left ribs Comparisons: None FINDINGS: The cardiomediastinal silhouette and pulmonary vessels are within normal limits. The lung and pleural spaces are clear. Mildly displaced anterolateral left eighth and ninth rib fractures. IMPRESSION: 1. Mildly displaced anterolateral left eighth and ninth rib fractures. 2. No acute cardiopulmonary process. Course & Med Decision Making: Course & Med Decision Making Pertinent Labs and Imaging studies reviewed. (See chart for details) [] Patient was evaluated for chief complaint. Work-up consisted of radiologic imaging x-ray fractures of eighth and ninth rib no pneumothorax. Treatment included fentanyl IM. Patient advised to take Tylenol ibuprofen at home for pain will prescribe hydrocodone. Dragon Disclaimer: Dragon Disclaimer: This electronic medical record was generated, in whole or in part, using a voice recognition dictation system. Departure Departure Impression: Primary Impression: Left rib fracture Disposition: HOME / SELF CARE / HOMELESS Condition: STABLE Referrals: ATIYA NICHOLE MD (PCP) Patient Instructions: Rib Fracture Scripts Hydrocodone/Acetaminophen (Hydrocodone-Acetamin 5-325 mg) 1 Each Tablet 1 EACH PO Q4-6HRS, #20 TAB Prov: BK CALVO DO 04/17/21 BK CALVO 20, 2021 19:32
[2021-04-17] MEDS ORDERED: fentaNYL PF VIAL 100 MCG/2 ML VIAL IM ONE (19:45)
--- NOTE | 2021-04-17 20:22 | RAD ---
Exam: Left ribs with PA chest INDICATION: Fall, pain TECHNIQUE: Frontal view of the chest with oblique and lateral views the left ribs Comparisons: None FINDINGS: The cardiomediastinal silhouette and pulmonary vessels are within normal limits. The lung and pleural spaces are clear. Mildly displaced anterolateral left eighth and ninth rib fractures. IMPRESSION: 1. Mildly displaced anterolateral left eighth and ninth rib fractures. 2. No acute cardiopulmonary process. Electronically signed by: Delmi Gao MD (04/17/2021 8:20 PM) [facility]
[2021-04-17] MEDS ORDERED: HYDR-2759 PO (20:36)
== END 2021-04-17 20:40 | disposition home or self-care (01) ==
LOC: ER 18:44
DX: S22.32XA Fracture of one rib, left side, initial encounter for closed fracture (principal); K21.9 Gastro-esophageal reflux disease without esophagitis; I10 Essential (primary) hypertension; Z87.891 Personal history of nicotine dependence; Z87.820 Personal history of traumatic brain injury; W01.0XXA Fall on same level from slipping, tripping and stumbling without subsequent striking against object, initial encounter; Y93.89 Activity, other specified; Y92.89 Other specified places as the place of occurrence of the external cause; Y99.8 Other external cause status
CPT/HCPCS: 71101; 96372; 99283; J3010

== ENCOUNTER 2021-09-04 23:48 | Inpatient (IN) | payer MEDICARE ==
[~2021-09-04] VITALS: Ht 182.9 cm; Wt 111.8 kg
[~2021-09-04 23:48] MED LIST changes: +HYDR-2759 PO
[2021-09-05] VITALS (9 sets, daily range): BP systolic 135–168; BP diastolic 57–87
--- NOTE | 2021-09-05 00:25 | PHYS DOC ---
Past Medical History Past Medical History: GERD, Hypertension, Pneumonia, Other Additional Past Medical Histor: SEASONAL ALLERGIES,HAND TREMORS,TBI, hiatal hernia, SHINGLES Past Surgical History: Appendectomy, Tonsillectomy, Other Additional Past Surgical Histo: nicole knee replacement, neck surgery Smoking Status: Former Smoker Alcohol Use: Occasionally Drug Use: None General Adult EDM: Chief Complaint: MECHANICAL FALL HPI: HPI: Patient is a 75 year old patient with past medical history of pneumonia, rib fractures, and GERD presenting today with significant chest pain started few hours ago when he woke up. Patient states that he states that the chest pain is in the middle of his chest, not associated with diaphoresis, nausea, vomiting. Chest pain is not worse with exertion. Patient does have shortness of breath with this chest pain. And the chest pain is pleuritic. Patient states that this does feel slightly similar to when he had pneumonia in the past. Patient did state that he also fell tonight. Patient did not hit his head, is not on any blood thinners, and he did not lose any consciousness. Patient did state that he had several beers today during the game. Patient is vaccinated for COVID-19. Patient denies any cough, fever, chills, numbness, tingling. Review of Systems: Review of Systems: Constitutional: Denies fever or chills Eyes: Denies redness or eye pain HENT: Denies nasal congestion or sore throat Respiratory: Denies cough or shortness of breath Cardiovascular: Denies palpitations but endorses chest pain GI: Denies abdominal pain, nausea, or vomiting : Denies dysuria or hematuria Musculoskeletal: Denies back pain or joint pain Integument: Denies rash or skin lesions Neurologic: Denies headache, focal weakness or sensory changes Complete systems were reviewed and found to be within normal limits, except as documented in this note. Heart Score: C/O Chest Pain: Yes HEART Score for Chest Pain: HEART Score for Chest Pain Response (Comments) Value History Moderately Suspicious 1 ECG Normal 0 Age > 65 2 Risk Factors 1 or 2 Risk Factors 1 Troponin < Normal Limit 0 Total 4 Risk Factors: Risk Factors: DM, Current or recent (<one month) smoker, HTN, HLP, family history of CAD, obesity. Risk Scores: Score 0 - 3: 2.5% MACE over next 6 weeks - Discharge Home Score 4 - 6: 20.3% MACE over next 6 weeks - Admit for Clinical Observation Score 7 - 10: 72.7% MACE over next 6 weeks - Early Invasive Strategies Allergies: Allergies: Allergies Coded Allergies Type Severity Reaction Last Updated Verified No Known Drug Allergies 08/19/14 No Physical Exam: PE: Constitutional: Well developed, well nourished, no acute distress, non-toxic appearance HENT: Normocephalic, atraumatic Eyes: PERRL, EOMI, conjunctiva normal, no discharge Neck: Normal range of motion, no tenderness, supple Lungs & Thorax: No respiratory distress, equal chest rise and fall, tenderness to palpation of the sternum and ribs 10 through 12 laterally Abdomen: Soft, no tenderness Skin: Warm, dry, no erythema, no rash Back: No tenderness, no CVA tenderness Extremities: No tenderness, ROM intact, no edema Neurologic: Alert and oriented X 3, normal motor function, normal sensory function, no focal deficits noted Psychologic: Affect normal, judgment normal EKG: EK: Sinus rhythm with a rate of 70 bpm, no significant ST, no changes T wave inversions, left axis deviation, MS 164 ms QRS 98 ms, QT/QTc 402/437 ms Radiology/Procedures: Radiology/Procedures: PROCEDURE: CT ANGIOGRAPHY CHEST PQRS Compliance Statement: One or more of the following individualized dose reduction techniques were utilized for this examination: 1. Automated exposure control 2. Adjustment of the mA and/or kV according to patient size 3. Use of iterative reconstruction technique CT CHEST WITH CONTRAST, PULMONARY ANGIOGRAM History: Reason: chest pain, SOA, Comparison: None. Technique: Helical CT of the chest was performed after the administration of 80 cc of Omnipaque 350 intravenous contrast according to PE protocol. Axial and coronal reconstructions were obtained. 3-D MIP images were constructed to better evaluate the pulmonary arteries. Findings: Pulmonary arteries are adequately opacified. There is no evidence of pulmonary embolism. There is no thoracic aortic dissection. There is no adenopathy in the chest. Great vessels are normal caliber. The cardiac size is normal, no pericardial effusion. There is no pleural effusion. The central airways are patent. There is moderate bilateral dependent atelectasis. The visualized upper abdomen is unremarkable. Thoracic spine alignment is maintained. There is degenerative spondylosis. There are old left lateral rib fractures. IMPRESSION: 1. There is no pulmonary embolus. 2. Moderate bilateral dependent atelectasis. Electronically signed by: Murray Ritchie MD (09/05/2021 2:39 AM) [facility] DICTATED and SIGNED BY: MURRAY RITCHIE MD PROCEDURE: CT HEAD AND CERVICAL SPINE [facility] Compliance Statement: One or more of the following individualized dose reduction techniques were utilized for this examination: 1. Automated exposure control 2. Adjustment of the mA and/or kV according to patient size 3. Use of iterative reconstruction technique CT HEAD AND CERVICAL SPINE WITHOUT CONTRAST History: Reason: chest pain, SOA / Spl. Instructions: / History: Comparison: CT head and cervical spine without contrast September 07, 2017. Procedure: Axial images are obtained of the head from the skull base through the vertex without IV contrast. Noncontrast helical CT of the cervical spine was performed. Axial, sagittal, and coronal reconstructions were obtained. Findings: The ventricles and sulci are prominent, consistent with age-related cerebral atrophy. There is mild periventricular white matter hypoattenuation. This is a nonspecific finding but is commonly due to chronic small vessel ischemic disease in a patient of this age. No mass-effect, midline shift, hemorrhage or obvious acute infarction is ident ified. Basilar cisterns are patent. Bone windows demonstrate no significant calvarial abnormality. The visualized paranasal sinuses are clear. Mastoid air cells are well aerated. There is no evidence of acute fracture or acute malalignment of the cervical spine. There is interbody fusion of C5-C7 vertebral bodies. Finding may be postsurgical or congenital or degenerative. The facet joints are mildly hypertrophic. There is severe disc space narrowing, uncinate process hypertrophy, and reactive endpl ate changes of C3/C4 and C4/C5. There is grade 1 anterolisthesis of C2 on C3 and C7 on T1 and T1 on T2. 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 There is multilevel central canal stenosis. 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 Multilevel neural foraminal narrowings identified. Visualized soft tissues of the neck demonstrate no significant abnormalities. The visualized lung apices are clear. IMPRESSION: 1. No acute intracranial abnormality. 2. No acute fracture of the cervical spine. Electronically signed by: Murray Ritchie MD (09/05/2021 2:50 AM) [facility] DICTATED and SIGNED BY: MURRAY RITCHIE MD Course & Med Decision Making: Course & Med Decision Making 75-year-old male past medical history of pneumonia, GERD, rib fractures is presenting today with chest pain located around the sternum has been gone for about 3 hours. Patient also fell a little before the chest pain onset. Patient had no loss of consciousness, no blood thinners. However, patient has been drinking tonight. Therefore, patient meets Nexus criteria for neck CT. Patient's ECG demonstrated no acute ST segment elevations or depressions. Considering patient's chest pain is reproducible, it is likely not cardiac in nature. There is a slight chance of pulmonary embolism given patient's shortness of breath and chest pain. Therefore CT angio was ordered. Patient patient's EKG and troponins were both within normal limits so not likely noncardiac nature of chest pain. Patient's alcohol was slightly elevated and this was several hours after last drink. Patient also has an elevated lactic acid. This may be due to alcohol consumption. CT angiogram demonstrated no PE. CT head and neck demonstrated no cervical spine fractures or intracranial abnormalities. Patient's pain appears to be musculoskeletal in nature. Aspirin was initially held due to potential head bleed right upper abdominal pain. However, head CT was within normal limits. Patient was given aspirin after this. Patient is willing to be admitted to the hospital for further cardiac work-up as his chest pain is returning as well as his elevated lactic acid. Patient requiring admission for further evaluation and treatment. Discussed with Dr. Yu (hospitalist) who is in agreement with admission. Discussed findings and plan with patient, who acknowledges understanding and agreement. Blanca Disclaimer: Blanca Disclaimer: This electronic medical record was generated, in whole or in part, using a voice recognition dictation system. Departure Departure Impression: Primary Impression: Chest pain Qualified Codes: R07.9 - Chest pain, unspecified Additional Impressions: Alcohol intoxication Qualified Codes: F10.920 - Alcohol use, unspecified with intoxication, uncomplicated Lactic acidosis Fall Qualified Codes: W19.XXXA - Unspecified fall, initial encounter Disposition: ADMITTED INPATIENT Admitting Physician: CLAUDETTE Perera) Condition: STABLE Referrals: ATIYA NICHOLE MD (PCP) RENAE REED DO Sep 05, 2021 00:25
--- NOTE | 2021-09-05 00:46 | EKG ---
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
[2021-09-05 00:52] LABS: BASO % 0 % (0-3); EOS % 0 % (0-3); HEMATOCRIT 46.4 % (39.0-53.0); HEMOGLOBIN 15.7 g/dL (13.0-17.5); LYMPH # 1.1 x10^3/uL (1.0-4.8); LYMPH % 11 % (24-48); MEAN CORPUSCULAR HEMOGLOBIN 33 pg (25-35); MEAN CORPUSCULAR HGB CONC 34 g/dL (31-37); MEAN CORPUSCULAR VOLUME 97 fL (79-100); MONO # 0.8 x10^3/uL (0.0-1.1); MONO % 8 % (0-9); NEUT # 8.5 x10^3/uL (1.8-7.7); NEUT % 81 % (31-73); PLATELET COUNT 249 x10^3/uL (140-400); RED BLOOD COUNT 4.81 x10^6/uL (4.30-5.70); RED CELL DISTRIBUTION WIDTH 13.8 % (11.5-14.5); WHITE BLOOD COUNT 10.5 x10^3/uL (4.0-11.0)
[2021-09-05] MEDS ORDERED: IV NORMAL SALINE 1000ML BAG 1,000 ML IV ONE (01:00)
[2021-09-05] MEDS ORDERED: fentaNYL PF VIAL 100 MCG/2 ML VIAL IVP ONE (01:00)
[2021-09-05 01:01] LABS: CALCIUM 8.6 mg/dL (8.5-10.1); CREATININE 1.2 mg/dL (0.7-1.3); GFR 58.7; POTASSIUM 4.2 mmol/L (3.5-5.1); PROTHROMBIN TIME PATIENT 13.6 SEC (11.7-14.0)
[2021-09-05 01:07] LABS: ALBUMIN/GLOBULIN RATIO 1.1 (1.0-1.7); MAGNESIUM 2.1 mg/dL (1.8-2.4); TOTAL BILIRUBIN 0.5 mg/dL (0.2-1.0); TOTAL PROTEIN 7.8 g/dL (6.4-8.2)
[2021-09-05] MEDS ORDERED: CONTRAST GIVEN. MC PRN (01:30)
[2021-09-05] MEDS ORDERED: IOHEXOL 350 MG/ML 100 ML VIAL. IV ONE (02:00)
--- NOTE | 2021-09-05 02:41 | RAD ---
PQRS Compliance Statement: One or more of the following individualized dose reduction techniques were utilized for this examinat ion: 1. Automated exposure control 2. Adjustment of the mA and/or kV according to patient size 3. Use of iterative reconstruction technique CT CHEST WITH CONTRAST, PULMONARY ANGIOGRAM History: Reason: chest pain, SOA, Comparison: None. Technique: Helical CT of the chest was performed after the administration of 80 cc of Omnipaque 350 intravenous contrast according to PE protocol. Axial and coronal reconstructions were obtained. 3-D MIP images were constructed to better evaluate the pulmonary arteries. Findings: Pulmonary arteries are adequately opacified. There is no evidence of pulmonary embolism. There is no thoracic aortic dissection. There is no adenopathy in the chest. Great vessels are normal caliber. The cardiac size is normal, no pericardial effusion. There is no pleural effusion. The central airways are patent. There is moderate bilateral dependent a telectasis. The visualized upper abdomen is unremarkable. Thoracic spine alignment is maintained. There is degenerative spondylosis. There are old left lateral rib fractures. IMPRESSION: 1. There is no pulmonary embolus. 2. Moderate bilateral dependent atelectasis. Electronically signed by: Murray Ritchie MD (09/05/2021 2:39 AM) [facility]
--- NOTE | 2021-09-05 02:52 | RAD ---
PQRS Compliance Statement: One or more of the following individualized dose reduction techniques were utilized for this examinat ion: 1. Automated exposure control 2. Adjustment of the mA and/or kV according to patient size 3. Use of iterative reconstruction technique CT HEAD AND CERVICAL SPINE WITHOUT CONTRAST History: Reason: chest pain, SOA / Spl. Instructions: / History: Comparison: CT head and cervical spine without contrast September 07, 2017. Procedure: Axial images are obtained of the head from the skull base through the vertex without IV co ntrast. Noncontrast helical CT of the cervical spine was performed. Axial, sagittal, and coronal rec onstructions were obtained. Findings: The ventricles and sulci are prominent, consistent with age-related cerebral atrophy. There is mild periventricular white matter hypoattenuation. This is a nonspecific finding but is commonly due to c hronic small vessel ischemic disease in a patient of this age. No mass-effect, midline shift, hemorrhage or obvious acute infarction is identified. Basilar cistern s are patent. Bone windows demonstrate no significant calvarial abnormality. The visualized paranasal sinuses are clear. Mastoid air cells are well aerated. There is no evidence of acute fracture or acute malalignment of the cervical spine. There is interbody fusion of C5-C7 vertebral bodies. Finding may be postsurgical or congenital or deg enerative. The facet joints are mildly hypertrophic. There is severe disc space narrowing, uncinate p rocess hypertrophy, and reactive endplate changes of C3/C4 and C4/C5. There is grade 1 anterolisthesi s of C2 on C3 and C7 on T1 and T1 on T2. Ossification along the nuchal ligament is incidentally noted . There is multilevel central canal stenosis. 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 Multilevel neural foraminal narrowings identified. Visualized soft tissues of the neck demonstrate no significant abnormalities. The visualized lung api chadd are clear. IMPRESSION: 1. No acute intracranial abnormality. 2. No acute fracture of the cervical spine. Electronically signed by: Murray Ritchie MD (09/05/2021 2:50 AM) [facility]
[2021-09-05] MEDS ORDERED: MULTIVIT INFUSN,ADULT 4,VIT K 10 ML, THIAMINE INJ 100 MG, FOLIC ACID INJ 1 MG in IV NOR... IV ONE (04:00)
[2021-09-05] MEDS ORDERED: fentaNYL PF VIAL 100 MCG/2 ML VIAL IVP PRN (04:15)
[2021-09-05] MEDS ORDERED: ONDANSETRON PF 4 MG/2 ML VIAL. IVP PRN (04:15)
[2021-09-05] MEDS ORDERED: fentaNYL PF VIAL 100 MCG/2 ML VIAL IV ONE (04:30)
[2021-09-05] MEDS ORDERED: IV NORMAL SALINE 1000ML BAG 1,000 ML IV SCH (04:30)
[2021-09-05] MEDS ORDERED: ASPIRIN ENTERIC COATED 325 MG TABLET.DR. PO ONE (04:30)
[2021-09-05] MEDS ORDERED: NAPR220C4 PO (06:43)
[2021-09-05] MEDS ORDERED: [UNRECOGNIZED DRUG - OTHER] PO (06:43)
[2021-09-05] MEDS ORDERED: [UNRECOGNIZED DRUG - REMARK] PO (06:43)
[2021-09-05] MEDS ORDERED: PRIM50TA24 PO (06:43)
[2021-09-05] MEDS ORDERED: Vit B PO (06:43)
--- NOTE | 2021-09-05 07:14 | PDOC1 ---
History and Physical Date of Admission Date of Admission DATE: 09/05/21 TIME: 07:08 Identification/Chief Complaint Chief Complaint Shortness of breath, chest pain Source Source: Patient History of Present Illness History of Present Illness Mr Ricks is a 75 year old male with PMHx GERD, seasonal allergies, h/o TBI, and HTN presented to ED overnight on 09/04/2021 with chest pain. Patient states that he states that the chest pain is in the middle of his chest, not associated with diaphoresis, nausea, vomiting. Chest pain is not worse with exertion. Patient does have shortness of breath with this chest pain. And the chest pain is pleuritic. Patient did state that he had several beers today during the game and takes a PPI for hiatal hernia and GERD. He notes he stumbled while walking up his stairs and fell scraping his left and right elbows as well as his chin and fell right onto his chest on a stair his pain is in a distribution on his mid anterior left and right ribs worse with palpation and deep inspiration. 05/07. He did not strike his head, is not on any blood thinners, and he did not lose any consciousness. Patient states that this does feel slightly similar to when he had pneumonia in the past. Patient is vaccinated for COVID-19. Patient denies any cough, fever, chills, numbness, tingling. EKG appears sinus rhythm rate of 70 bpm left axis deviation, left anterior fascicular block, no acute ST segment elevations or T WI, QTC 437 Alcohol 123 at 0035, NA 130 6K4.2, BUN 9, CR 1.2, glucose 122, LFTs within normal laboratory limits high-sensitivity troponin VII, lactic acid 2.9, WBC 10.7, Hb 15.7, platelets 249, INR 1, rapid COVID-19 negative CTPA negative for pulmonary embolism, CT head and cervical spine no acute pulmonary intracranial abnormalities. Admitted for further care. Past Medical History Cardiovascular: HTN GI: GERD Past Surgical History Past Surgical History Appendectomy, Tonsillectomy, nicloe knee replacement, neck surgery Past Surgical History: Appendectomy, Total knee replacement, Tonsillectomy, O ther (Neck fusion) Family History Family History: High Cholestrol, Hypertension Social History Smoke: No ALCOHOL: social Drugs: None Current Problem List Problem List Problems Medical Problems: (1) Alcohol intoxication Status: Acute (2) Chest pain Status: Acute (3) Fall Status: Acute (4) Lactic acidosis Status: Acute Current Medications Current Medications Current Medications Sodium Chloride 1,000 ml @ 1,000 mls/hr 1X ONCE IV Last administered on 09/05/21at 01:00; Start 09/05/21 at 01:00; Stop 09/05/21 at 01:59; Status DC Fentanyl Citrate (Fentanyl 2ml Vial) 50 mcg 1X ONCE IVP Last administered on 09/05/21at 02:05; Start 09/05/21 at 01:00; Stop 09/05/21 at 01:01; Status DC Iohexol (Omnipaque 350 Mg/ml) 100 ml 1X ONCE IV Last administered on 09/05/21at 02:14; Start 09/05/21 at 02:00; Stop 09/05/21 at 02:01; Status DC Info (CONTRAST GIVEN -- Rx MONITORING) 1 each PRN DAILY PRN MC SEE COMMENTS; Start 09/05/21 at 01:30; Stop 09/07/21 at 01:29 Multivitamins 10 ml/Thiamine HCl 100 mg/Folic Acid 1 mg/Sodium Chloride 1,011.2 ml @ 1,000.088 mls/hr 1X ONCE IV Last administered on 09/05/21at 04:10; Start 09/05/21 at 04:00; Stop 09/05/21 at 05:00; Status DC Fentanyl Citrate (Fentanyl 2ml Vial) 50 mcg 1X ONCE IV Last administered on 09/05/21at 04:12; Start 09/05/21 at 04:30; Stop 09/05/21 at 04:31; Status DC Aspirin (Ecotrin) 325 mg 1X ONCE PO Last administered on 09/05/21at 04:11; Start 09/05/21 at 04:30; Stop 09/05/21 at 04:31; Status DC Ondansetron HCl (Zofran) 4 mg PRN Q8HRS PRN IVP NAUSEA/VOMITING 1ST CHOICE; Start 09/05/21 at 04:15; Stop 09/06/21 at 04:14 Fentanyl Citrate (Fentanyl 2ml Vial) 50 mcg PRN Q2HRS PRN IVP SEVERE PAIN 7-10 Last administered on 09/05/21at 06:21; Start 09/05/21 at 04:15 Sodium Chloride 1,000 ml @ 100 mls/hr Q10H IV ; Start 09/05/21 at 04:30; Stop 09/06/21 at 04:29 Influenza Virus Vaccine Quadrival (Flulaval Quad Syringe) 0.5 ml ONCE ONCE VAX IM ; Start 09/05/21 at 09:00; Stop 09/05/21 at 09:01 Active Scripts Active 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 [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, 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] 1 Tab PO BID [equate allery pill] 1 Tab PO Q4HRS [Vit B] 1 Tab PO DAILY Aleve (Naproxen Sodium) 220 Mg Capsule 220 Mg PO BID Mysoline (Primidone) 50 Mg Tablet 2 Tab PO BID 30 Days Allergies Allergies: Coded Allergies: No Known Drug Allergies (Unverified , 08/19/14) ROS General: YES: Fatigue, Malaise; No: Chills, Night Sweats, Appetite, Other PSYCHOLOGICAL ROS: No: Anxiety, Behavioral Disorder, Concentration difficultie, Decreased libido, Depression, Disorientation, Hallucinations, Hostility, Irritablity, Memory difficulties, Mood Swings, Obsessive thoughts, Physical abuse, Sexual abuse, Sleep disturbances, Suicidal ideation, Other Eyes: No Blurry vision, No Decreased vision, No Double vision, No Dry eyes, No Excessive tearing, No Eye Pain, No Itchy Eyes, No Loss of vision, No Photophobia, No Scotomata, No Uses contacts, No Uses glasses, No Other HEENT: No: Heacaches, Visual Changes, Hearing change, Nasal congestion, Nasal discharge, Oral lesions, Sinus pain, Sore Throat, Epistaxis, Sneezing, Snoring, Tinnitus, Vertigo, Vocal changes, Other ALLERGY AND IMMUNOLOGY: No: Hives, Insect Bite Sensitivity, Itchy/Watery Eyes, Nasal Congestion, Post Nasal Drip, Seasonal Allergies, Other Hematological and Lymphatic: No: Bleeding Problems, Blood Clots, Blood Transfusions, Brusing, Night Sweats, Pallor, Swollen Lymph Nodes, Other ENDOCRINE: No: Breast Changes, Galactorrhea, Hair Pattern Changes, Hot Flashes, Malaise/lethargy, Mood Swings, Palpitations, Polydipsia/polyuria, Skin Changes, Temperature Intolerance, Unexpected Weight Changes, Other Breast: No New/Changing Breast Lumps, No Nipple changes, No Nipple discharge, No Other Respiratory: YES: Shortness of breath; No: Cough, Hemoptysis, Orthopnea, Pleuritic Pain, SOB with excertion, Sputum Changes, Stridor, Tachypnea, Wheezing, Other Cardiovascular: yes Chest Pain; No Palpitations, No Orthopnea, No Paroxysmal Noc. Dyspnea, No Edema, No Lt Headedness, No Other Gastrointestinal: No Nausea, No Vomiting, No Abdominal Pain, No Diarrhea, No Constipation, No Melena, No Hematochezia, No Other Genitourinary: No Dysuria, No Frequency, No Incontinence, No Hematuria, No Retention, No Discharge, No Urgency, No Pain, No Flank Pain, No Other, No , No , No , No , No , No , No Musculoskeletal: No Gait Disturbance, No Joint Pain, No Joint Stiffness, No Joint Swelling, No Muscle Pain, No Muscular Weakness, No Pain In:, No Swelling In:, No Other Neurological: No Behavorial Changes, No Bowel/Bladder ControlChng, No Confusion, No Dizziness, No Gait Disturbance, No Headaches, No Impaired Coord/balance, No Memory Loss, No Numbness/Tingling, No Seizures, No Speech Problems, No Tremors, No Visual Changes, No Weakness, No Other Skin: No Dry Skin, No Eczema, No Hair Changes, No Lumps, No Mole Changes, No Mottling, No Nail Changes, No Pruritus, No Rash, No Skin Lesion Changes, No Other, No Acne Physical Exam General: Alert, Oriented X3, Cooperative, moderate distress HEENT: Atraumatic, PERRLA, EOMI, Mucous membr. moist/pink Lungs: Clear to auscultation, Normal air movement Heart: S1S2, RRR, no thrills, no rubs, no gallops, no murmurs Abdomen: Normal bowel sounds, Soft, No tenderness, No hepatosplenomegaly, No masses Extremities: No clubbing, No cyanosis, No edema, Normal pulses, No tenderness/swelling Skin: No breakdown, Other Neuro: Normal gait, Normal speech, Strength at 5/5 X4 ext, Normal tone, Sensation intact, Cranial nerves 3-12 NL, Reflexes 2+ Psych/Mental Status: Mental status NL, Mood NL Vitals Vitals Vital Signs Date Time Temp Pulse Resp B/P (MAP) Pulse Ox O2 Delivery O2 Flow Rate FiO2 09/05/21 06:51 18 92 Room Air 09/05/21 06:10 99.0 82 158/66 (96) 99.0 Labs Labs Laboratory Tests Test 09/05/21 00:35 09/05/21 00:52 09/05/21 04:05 White Blood Count 10.5 x10^3/uL (4.0-11.0) Red Blood Count 4.81 x10^6/uL (4.30-5.70) Hemoglobin 15.7 g/dL (13.0-17.5) Hematocrit 46.4 % (39.0-53.0) Mean Corpuscular Volume 97 fL (79-100) Mean Corpuscular Hemoglobin 33 pg (25-35) Mean Corpuscular Hemoglobin Concent 34 g/dL (31-37) Red Cell Distribution Width 13.8 % (11.5-14.5) Platelet Count 249 x10^3/uL (140-400) Neutrophils (%) (Auto) 81 % (31-73) Lymphocytes (%) (Auto) 11 % (24-48) Monocytes (%) (Auto) 8 % (0-9) Eosinophils (%) (Auto) 0 % (0-3) Basophils (%) (Auto) 0 % (0-3) Neutrophils # (Auto) 8.5 x10^3/uL (1.8-7.7) Lymphocytes # (Auto) 1.1 x10^3/uL (1.0-4.8) Monocytes # (Auto) 0.8 x10^3/uL (0.0-1.1) Eosinophils # (Auto) 0.0 x10^3/uL (0.0-0.7) Basophils # (Auto) 0.0 x10^3/uL (0.0-0.2) Prothrombin Time 13.6 SEC (11.7-14.0) Prothromb Time International Ratio 1.0 (0.8-1.1) Activated Partial Thromboplast Time 32 SEC (24-38) Sodium Level 136 mmol/L (136-145) Potassium Level 4.2 mmol/L (3.5-5.1) Chloride Level 100 mmol/L (98-107) Carbon Dioxide Level 25 mmol/L (21-32) Anion Gap 11 (6-14) Blood Urea Nitrogen 9 mg/dL (8-26) Creatinine 1.2 mg/dL (0.7-1.3) Estimated GFR (Cockcroft-Gault) 58.7 BUN/Creatinine Ratio 8 (6-20) Glucose Level 122 mg/dL (70-99) Lactic Acid Level 2.9 mmol/L (0.4-2.0) Calcium Level 8.6 mg/dL (8.5-10.1) Magnesium Level 2.1 mg/dL (1.8-2.4) Total Bilirubin 0.5 mg/dL (0.2-1.0) Aspartate Amino Transf (AST/SGOT) 30 U/L (15-37) Alanine Aminotransferase (ALT/SGPT) 25 U/L (16-63) Alkaline Phosphatase 106 U/L (46-116) Creatine Kinase 149 U/L (39-308) Creatine Kinase MB (Mass) 2.7 ng/mL (0.0-3.6) Creatine Kinase MB Relative Index 1.8 % (0-4) Troponin I High Sensitivity 7 ng/L (4-75) 6 ng/L (4-75) EU-Xzm-Q-Type Natriuretic Peptide 99 pg/mL (0-449) Total Protein 7.8 g/dL (6.4-8.2) Albumin 4.0 g/dL (3.4-5.0) Albumin/Globulin Ratio 1.1 (1.0-1.7) Lipase 125 U/L (73-393) Ethyl Alcohol Level 123 mg/dL (0-10) SARS-CoV-2 Antigen (Rapid) Negative (NEGATIVE) Laboratory Tests Test 09/05/21 00:35 09/05/21 00:52 09/05/21 04:05 White Blood Count 10.5 x10^3/uL (4.0-11.0) Red Blood Count 4.81 x10^6/uL (4.30-5.70) Hemoglobin 15.7 g/dL (13.0-17.5) Hematocrit 46.4 % (39.0-53.0) Mean Corpuscular Volume 97 fL (79-100) Mean Corpuscular Hemoglobin 33 pg (25-35) Mean Corpuscular Hemoglobin Concent 34 g/dL (31-37) Red Cell Distribution Width 13.8 % (11.5-14.5) Platelet Count 249 x10^3/uL (140-400) Neutrophils (%) (Auto) 81 % (31-73) Lymphocytes (%) (Auto) 11 % (24-48) Monocytes (%) (Auto) 8 % (0-9) Eosinophils (%) (Auto) 0 % (0-3) Basophils (%) (Auto) 0 % (0-3) Neutrophils # (Auto) 8.5 x10^3/uL (1.8-7.7) Lymphocytes # (Auto) 1.1 x10^3/uL (1.0-4.8) Monocytes # (Auto) 0.8 x10^3/uL (0.0-1.1) Eosinophils # (Auto) 0.0 x10^3/uL (0.0-0.7) Basophils # (Auto) 0.0 x10^3/uL (0.0-0.2) Prothrombin Time 13.6 SEC (11.7-14.0) Prothromb Time International Ratio 1.0 (0.8-1.1) Activated Partial Thromboplast Time 32 SEC (24-38) Sodium Level 136 mmol/L (136-145) Potassium Level 4.2 mmol/L (3.5-5.1) Chloride Level 100 mmol/L (98-107) Carbon Dioxide Level 25 mmol/L (21-32) Anion Gap 11 (6-14) Blood Urea Nitrogen 9 mg/dL (8-26) Creatinine 1.2 mg/dL (0.7-1.3) Estimated GFR (Cockcroft-Gault) 58.7 BUN/Creatinine Ratio 8 (6-20) Glucose Level 122 mg/dL (70-99) Lactic Acid Level 2.9 mmol/L (0.4-2.0) Calcium Level 8.6 mg/dL (8.5-10.1) Magnesium Level 2.1 mg/dL (1.8-2.4) Total Bilirubin 0.5 mg/dL (0.2-1.0) Aspartate Amino Transf (AST/SGOT) 30 U/L (15-37) Alanine Aminotransferase (ALT/SGPT) 25 U/L (16-63) Alkaline Phosphatase 106 U/L (46-116) Creatine Kinase 149 U/L (39-308) Creatine Kinase MB (Mass) 2.7 ng/mL (0.0-3.6) Creatine Kinase MB Relative Index 1.8 % (0-4) Troponin I High Sensitivity 7 ng/L (4-75) 6 ng/L (4-75) WV-Uxh-K-Type Natriuretic Peptide 99 pg/mL (0-449) Total Protein 7.8 g/dL (6.4-8.2) Albumin 4.0 g/dL (3.4-5.0) Albumin/Globulin Ratio 1.1 (1.0-1.7) Lipase 125 U/L (73-393) Ethyl Alcohol Level 123 mg/dL (0-10) SARS-CoV-2 Antigen (Rapid) Negative (NEGATIVE) Images Images CTPA: Pulmonary arteries are adequately opacified. There is no evidence of pulmonary embolism. There is no thoracic aortic dissection. There is no adenopathy in the chest. Great vessels are normal caliber. The cardiac size is normal, no pericardial effusion. There is no pleural effusion. The central airways are patent. There is moderate bilateral dependent atelectasis. The visualized upper abdomen is unremarkable. Thoracic spine alignment is maintained. There is degenerative spondylosis. There are old left lateral rib fractures. IMPRESSION: 1. There is no pulmonary embolus. 2. Moderate bilateral dependent atelectasis. CT HEAD AND CERVICAL SPINE WITHOUT CONTRAST: The ventricles and sulci are prominent, consistent with age-related cerebral atrophy. There is mild periventricular white matter hypoattenuation. This is a nonspecific finding but is commonly due to chronic small vessel ischemic disease in a patient of this age. No mass-effect, midline shift, hemorrhage or obvious acute infarction is identified. Basilar cisterns are patent. Bone windows demonstrate no significant calvarial abnormality. The visualized paranasal sinuses are clear. Mastoid air cells are well aerated. There is no evidence of acute fracture or acute malalignment of the cervical spine. There is interbody fusion of C5-C7 vertebral bodies. Finding may be postsurgical or congenital or degenerative. The facet joints are mildly hypertrophic. There is severe disc space narrowing, uncinate process hypertrophy, and reactive endplate changes of C3/C4 and C4/C5. There is grade 1 anterolisthesis of C2 on C3 and C7 on T1 and T1 on T2. 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 There is multilevel central canal stenosis. 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 Multilevel neural foraminal narrowings identified. Visualized soft tissues of the neck demonstrate no significant abnormalities. The visualized lung apices are clear. IMPRESSION: 1. No acute intracranial abnormality. 2. No acute fracture of the cervical spine. VTE Prophylaxis Ordered VTE Prophylaxis Devices: No VTE Pharmacological Prophylaxi: Yes Assessment/Plan Assessment/Plan A/P: Chest pain - seems to be costochondritis from traumatic fall, no fractures. Normal EKG and troponin, will trend out given his history. Treat GERD as well Lactic acidosis - likely due to dehydration related to ETOH Alcohol intoxication - will place on CIWA Bilateral elbow and chin abrasions - local wound care GERD with hiatal hernia - PPI FEN - NPO PPX - lovenox FULL CODE Dispo - CVC admit Justifications for Admission Other Justification CECE SCHWARTZ MD Sep 05, 2021 07:14
--- NOTE | 2021-09-05 07:19 | NUR ---
Patient arrived to room 107 via wheelchair at 0600. Patient ambulated to chair with steady gait. Attached to ICU monitors, SR on monitor. Patient on RA, complaining of pain in chest and headache. Abrasions noted on L elbow and under chin--pictured and documented. Patient oriented to unit and call light. Stable at this time. Patient wishes to be DNR--will pass to day shift to contact MD regarding order.
[2021-09-05] MEDS ORDERED: KETOROLAC 30 MG/ML VIAL. IVP PRN (07:45)
[2021-09-05] MEDS ORDERED: PANTOPRAZOLE IV PUSH 40 MG VIAL. IVP SCH (07:45)
[2021-09-05] MEDS ORDERED: FLU VACC QUAD 21-22 (6MOS+) PF 0.5 ML SYRINGE. VAX IM ONE (09:00)
[2021-09-05] MEDS ORDERED: PRIMIDONE 50 MG TABLET PO SCH (09:00)
[2021-09-05] MEDS ORDERED: LIDOCAINE (700MG/PATCH) PATCH. TD SCH (10:30)
[2021-09-05] MEDS ORDERED: NAPROXEN 250 MG TABLET PO PRN (11:15)
--- NOTE | 2021-09-05 12:50 | PDOC2 ---
LEONARDA CRUZ PATROL SUPERVISOR 09/05/21 1250: CARDIAC CONSULT DATE OF CONSULT Date of Consult DATE: 09/05/21 TIME: 12:44 REASON FOR CONSULT Reason for Consult: Chest pain REFERRING PHYSICIAN Referring Physician: Dr. Chavez SOURCE Source: Chart review, Patient HISTORY OF PRESENT ILLNESS HISTORY OF PRESENT ILLNESS This is a 75 yo male who presented secondary to chest pain. Patient reports he slipped on leaves coming up the stairs outside yesterday and fell forward onto his chest. No dizziness or loss of consciousness. Did have an abrasion on his chin. Reports that he did not have significant pain initially in his chest, but when he laid down to go to bed and began having pain on each side of his chest. Reports pain is worse with deep breathing and is tender upon palpation. No shortness of breath, diaphoresis, or nausea/vomiting. PAST MEDICAL HISTORY Cardiovascular: HTN CENTRAL NERVOUS SYSTEM: Other (TBI) GI: GERD PAST SURGICAL HISTORY Past Surgical History: Appendectomy, Tonsillectomy, Other (nicole knee replacement, neck surgery) FAMILY HISTORY Family History: Hypertension SOCIAL HISTORY Smoke: No ALCOHOL: social Drugs: None Lives: Alone CURRENT MEDICATIONS CURRENT MEDICATIONS Current Medications Medications (Trade) Dose Ordered Sig/Patricia Route PRN Reason Start Time Stop Time Status Last Admin Dose Admin Sodium Chloride 1,000 ml @ 1,000 mls/hr 1X ONCE IV 09/05/21 01:00 09/05/21 01:59 DC 09/05/21 01:00 Fentanyl Citrate (Fentanyl 2ml Vial) 50 mcg 1X ONCE IVP 09/05/21 01:00 09/05/21 01:01 DC 09/05/21 02:05 Iohexol (Omnipaque 350 Mg/ml) 100 ml 1X ONCE IV 09/05/21 02:00 09/05/21 02:01 DC 09/05/21 02:14 Multivitamins 10 ml/Thiamine HCl 100 mg/Folic Acid 1 mg/Sodium Chloride 1,011.2 ml @ 1,000.088 mls/hr 1X ONCE IV 09/05/21 04:00 09/05/21 05:00 DC 09/05/21 04:10 Fentanyl Citrate (Fentanyl 2ml Vial) 50 mcg 1X ONCE IV 09/05/21 04:30 09/05/21 04:31 DC 09/05/21 04:12 Aspirin (Ecotrin) 325 mg 1X ONCE PO 09/05/21 04:30 09/05/21 04:31 DC 09/05/21 04:11 Ondansetron HCl (Zofran) 4 mg PRN Q8HRS PRN IVP NAUSEA/VOMITING 1ST CHOICE 09/05/21 04:15 09/06/21 04:14 09/05/21 07:47 Fentanyl Citrate (Fentanyl 2ml Vial) 50 mcg PRN Q2HRS PRN IVP SEVERE PAIN 7-10 09/05/21 04:15 09/05/21 06:21 Sodium Chloride 1,000 ml @ 100 mls/hr Q10H IV 09/05/21 04:30 09/06/21 04:29 09/05/21 07:47 Primidone (Mysoline) 100 mg BID PO 09/05/21 09:00 09/05/21 11:36 Ketorolac Tromethamine (Toradol 30mg Vial) 15 mg PRN Q6HRS PRN IVP INFLAMMATION 09/05/21 07:45 09/05/21 07:43 Pantoprazole Sodium (PROTONIX VIAL for IV PUSH) 40 mg DAILYAC IVP 09/05/21 07:45 09/05/21 11:36 Naproxen (Naprosyn) 250 mg PRN BID PRN PO headache 09/05/21 11:15 09/05/21 11:37 ALLERGIES ALLERGIES: Coded Allergies: No Known Drug Allergies (Unverified , 08/19/14) ROS Review of System 14 point ROS conducted with pertinent positives noted above in HPI PHYSICAL EXAM General: Alert, Oriented X3, Cooperative, No acute distress HEENT: Atraumatic, Other (chin abrasion ) Lungs: Clear to auscultation, Other (pain in bilateral chest upon palpation ) Heart: Regular rate Abdomen: Soft Extremities: No edema, Normal pulses Skin: No significant lesion Neuro: Normal speech, Sensation intact Psych/Mental Status: Mental status NL, Mood NL MUSCULOSKELETAL: Osteoarthritic changes both hands VITALS/I&O VITALS/I&O: Vital Signs Date Time Temp Pulse Resp B/P (MAP) Pulse Ox O2 Delivery O2 Flow Rate FiO2 09/05/21 08:00 Room Air 09/05/21 06:51 18 92 09/05/21 06:10 99.0 82 158/66 (96) 99.0 I & O 09/04/21 09/04/21 09/05/21 15:00 23:00 07:00 Output Total 900 ml Balance -900 ml LABS Lab: Laboratory Tests Test 09/05/21 00:35 09/05/21 00:52 09/05/21 04:05 09/05/21 08:10 White Blood Count 10.5 x10^3/uL (4.0-11.0) Red Blood Count 4.81 x10^6/uL (4.30-5.70) Hemoglobin 15.7 g/dL (13.0-17.5) Hematocrit 46.4 % (39.0-53.0) Mean Corpuscular Volume 97 fL (79-100) Mean Corpuscular Hemoglobin 33 pg (25-35) Mean Corpuscular Hemoglobin Concent 34 g/dL (31-37) Red Cell Distribution Width 13.8 % (11.5-14.5) Platelet Count 249 x10^3/uL (140-400) Neutrophils (%) (Auto) 81 % (31-73) H Lymphocytes (%) (Auto) 11 % (24-48) L Monocytes (%) (Auto) 8 % (0-9) Eosinophils (%) (Auto) 0 % (0-3) Basophils (%) (Auto) 0 % (0-3) Neutrophils # (Auto) 8.5 x10^3/uL (1.8-7.7) H Lymphocytes # (Auto) 1.1 x10^3/uL (1.0-4.8) Monocytes # (Auto) 0.8 x10^3/uL (0.0-1.1) Eosinophils # (Auto) 0.0 x10^3/uL (0.0-0.7) Basophils # (Auto) 0.0 x10^3/uL (0.0-0.2) Prothrombin Time 13.6 SEC (11.7-14.0) Prothrombin Time INR 1.0 (0.8-1.1) Activated Partial Thromboplast Time 32 SEC (24-38) Sodium Level 136 mmol/L (136-145) Potassium Level 4.2 mmol/L (3.5-5.1) Chloride Level 100 mmol/L (98-107) Carbon Dioxide Level 25 mmol/L (21-32) Anion Gap 11 (6-14) Blood Urea Nitrogen 9 mg/dL (8-26) Creatinine 1.2 mg/dL (0.7-1.3) Estimated GFR (Cockcroft-Gault) 58.7 BUN/Creatinine Ratio 8 (6-20) Glucose Level 122 mg/dL (70-99) H Lactic Acid Level 2.9 mmol/L (0.4-2.0) H 1.2 mmol/L (0.4-2.0) Calcium Level 8.6 mg/dL (8.5-10.1) Magnesium Level 2.1 mg/dL (1.8-2.4) Total Bilirubin 0.5 mg/dL (0.2-1.0) Aspartate Amino Transferase (AST) 30 U/L (15-37) Alanine Aminotransferase (ALT) 25 U/L (16-63) Alkaline Phosphatase 106 U/L (46-116) Creatine Kinase 149 U/L (39-308) Creatine Kinase MB (Mass) 2.7 ng/mL (0.0-3.6) Creatine Kinase MB Relative Index 1.8 % (0-4) Troponin I High Sensitivity 7 ng/L (4-75) 6 ng/L (4-75) 6 ng/L (4-75) QZ-Oxi-R-Type Natriuretic Peptide 99 pg/mL (0-449) Total Protein 7.8 g/dL (6.4-8.2) Albumin 4.0 g/dL (3.4-5.0) Albumin/Globulin Ratio 1.1 (1.0-1.7) Lipase 125 U/L (73-393) Ethyl Alcohol Level 123 mg/dL (0-10) H SARS-CoV-2 RNA (ROSE) Negative (Negative) SARS-CoV-2 Antigen (Rapid) Negative (NEGATIVE) Laboratory Tests 09/05/21 00:35 Laboratory Tests 09/05/21 00:35 ASSESSMENT/PLAN ASSESSMENT/PLAN 1. Chest pain, atypical. AMI ruled out. Most probably costochondritis, MSK from traumatic mechanical fall. No acute fractures were noted. EKG without significant acute changes. No acute events on tele. ETOH level 123 2. Hypertension; controlled overall 3. Lactic acidosis, resolved 4. H/o TBI Recommendations Supportive care No further cardiac workup warranted at this time. OLGA PRAKASH MD 09/06/21 1254: CARDIAC CONSULT ASSESSMENT/PLAN ASSESSMENT/PLAN Late entry for 09/05/2021 Patient seen and examined. Agree with above nurse practitioner EKG/echo are unremarkable. Outpatient follow-up. LEONARDA CRUZ APRN Sep 05, 2021 12:50 OLGA PRAKASH MD Sep 06, 2021 12:54
[2021-09-05] MEDS ORDERED: CELE100C PO (14:28)
[2021-09-05] MEDS ORDERED: TRAM50TA PO (14:28)
--- NOTE | 2021-09-05 14:30 | NUR ---
SS following for discharge planning. SS reviewed pt chart and discussed with pt RN. Pt is from home and is currently on room air. COVID19 negative. Cardiology following. Discharge order on the chart for home with self care.
--- NOTE | 2021-09-05 14:35 | PDOC3 ---
Discharge Summary Visit Information Date of Admission: Sep 05, 2021 Date of Discharge: Sep 05, 2021 Admitting Diagnosis: Chest pain Final Diagnosis Problems Medical Problems: (1) Alcohol intoxication Status: Acute (2) Chest pain Status: Acute (3) Fall Status: Acute (4) Lactic acidosis Status: Acute Brief Hospital Course Allergies Allergies Coded Allergies Type Severity Reaction Last Updated Verified No Known Drug Allergies 08/19/14 No Vital Signs Vital Signs Date Time Temp Pulse Resp B/P (MAP) Pulse Ox O2 Delivery O2 Flow Rate FiO2 09/05/21 14:00 66 13 145/61 (89) 91 Room Air 09/05/21 12:00 98.1 98.1 Lab Results Laboratory Tests Test 09/05/21 00:35 09/05/21 00:52 09/05/21 04:05 09/05/21 08:10 White Blood Count 10.5 x10^3/uL (4.0-11.0) Red Blood Count 4.81 x10^6/uL (4.30-5.70) Hemoglobin 15.7 g/dL (13.0-17.5) Hematocrit 46.4 % (39.0-53.0) Mean Corpuscular Volume 97 fL (79-100) Mean Corpuscular Hemoglobin 33 pg (25-35) Mean Corpuscular Hemoglobin Concent 34 g/dL (31-37) Red Cell Distribution Width 13.8 % (11.5-14.5) Platelet Count 249 x10^3/uL (140-400) Neutrophils (%) (Auto) 81 % (31-73) Lymphocytes (%) (Auto) 11 % (24-48) Monocytes (%) (Auto) 8 % (0-9) Eosinophils (%) (Auto) 0 % (0-3) Basophils (%) (Auto) 0 % (0-3) Neutrophils # (Auto) 8.5 x10^3/uL (1.8-7.7) Lymphocytes # (Auto) 1.1 x10^3/uL (1.0-4.8) Monocytes # (Auto) 0.8 x10^3/uL (0.0-1.1) Eosinophils # (Auto) 0.0 x10^3/uL (0.0-0.7) Basophils # (Auto) 0.0 x10^3/uL (0.0-0.2) Prothrombin Time 13.6 SEC (11.7-14.0) Prothromb Time International Ratio 1.0 (0.8-1.1) Activated Partial Thromboplast Time 32 SEC (24-38) Sodium Level 136 mmol/L (136-145) Potassium Level 4.2 mmol/L (3.5-5.1) Chloride Level 100 mmol/L (98-107) Carbon Dioxide Level 25 mmol/L (21-32) Anion Gap 11 (6-14) Blood Urea Nitrogen 9 mg/dL (8-26) Creatinine 1.2 mg/dL (0.7-1.3) Estimated GFR (Cockcroft-Gault) 58.7 BUN/Creatinine Ratio 8 (6-20) Glucose Level 122 mg/dL (70-99) Lactic Acid Level 2.9 mmol/L (0.4-2.0) 1.2 mmol/L (0.4-2.0) Calcium Level 8.6 mg/dL (8.5-10.1) Magnesium Level 2.1 mg/dL (1.8-2.4) Total Bilirubin 0.5 mg/dL (0.2-1.0) Aspartate Amino Transf (AST/SGOT) 30 U/L (15-37) Alanine Aminotransferase (ALT/SGPT) 25 U/L (16-63) Alkaline Phosphatase 106 U/L (46-116) Creatine Kinase 149 U/L (39-308) Creatine Kinase MB (Mass) 2.7 ng/mL (0.0-3.6) Creatine Kinase MB Relative Index 1.8 % (0-4) Troponin I High Sensitivity 7 ng/L (4-75) 6 ng/L (4-75) 6 ng/L (4-75) YK-Rxq-A-Type Natriuretic Peptide 99 pg/mL (0-449) Total Protein 7.8 g/dL (6.4-8.2) Albumin 4.0 g/dL (3.4-5.0) Albumin/Globulin Ratio 1.1 (1.0-1.7) Lipase 125 U/L (73-393) Ethyl Alcohol Level 123 mg/dL (0-10) SARS-CoV-2 RNA (ROSE) Negative (Negative) SARS-CoV-2 Antigen (Rapid) Negative (NEGATIVE) Laboratory Tests Test 09/05/21 00:35 09/05/21 00:52 09/05/21 04:05 09/05/21 08:10 White Blood Count 10.5 x10^3/uL (4.0-11.0) Red Blood Count 4.81 x10^6/uL (4.30-5.70) Hemoglobin 15.7 g/dL (13.0-17.5) Hematocrit 46.4 % (39.0-53.0) Mean Corpuscular Volume 97 fL (79-100) Mean Corpuscular Hemoglobin 33 pg (25-35) Mean Corpuscular Hemoglobin Concent 34 g/dL (31-37) Red Cell Distribution Width 13.8 % (11.5-14.5) Platelet Count 249 x10^3/uL (140-400) Neutrophils (%) (Auto) 81 % (31-73) Lymphocytes (%) (Auto) 11 % (24-48) Monocytes (%) (Auto) 8 % (0-9) Eosinophils (%) (Auto) 0 % (0-3) Basophils (%) (Auto) 0 % (0-3) Neutrophils # (Auto) 8.5 x10^3/uL (1.8-7.7) Lymphocytes # (Auto) 1.1 x10^3/uL (1.0-4.8) Monocytes # (Auto) 0.8 x10^3/uL (0.0-1.1) Eosinophils # (Auto) 0.0 x10^3/uL (0.0-0.7) Basophils # (Auto) 0.0 x10^3/uL (0.0-0.2) Prothrombin Time 13.6 SEC (11.7-14.0) Prothromb Time International Ratio 1.0 (0.8-1.1) Activated Partial Thromboplast Time 32 SEC (24-38) Sodium Level 136 mmol/L (136-145) Potassium Level 4.2 mmol/L (3.5-5.1) Chloride Level 100 mmol/L (98-107) Carbon Dioxide Level 25 mmol/L (21-32) Anion Gap 11 (6-14) Blood Urea Nitrogen 9 mg/dL (8-26) Creatinine 1.2 mg/dL (0.7-1.3) Estimated GFR (Cockcroft-Gault) 58.7 BUN/Creatinine Ratio 8 (6-20) Glucose Level 122 mg/dL (70-99) Lactic Acid Level 2.9 mmol/L (0.4-2.0) 1.2 mmol/L (0.4-2.0) Calcium Level 8.6 mg/dL (8.5-10.1) Magnesium Level 2.1 mg/dL (1.8-2.4) Total Bilirubin 0.5 mg/dL (0.2-1.0) Aspartate Amino Transf (AST/SGOT) 30 U/L (15-37) Alanine Aminotransferase (ALT/SGPT) 25 U/L (16-63) Alkaline Phosphatase 106 U/L (46-116) Creatine Kinase 149 U/L (39-308) Creatine Kinase MB (Mass) 2.7 ng/mL (0.0-3.6) Creatine Kinase MB Relative Index 1.8 % (0-4) Troponin I High Sensitivity 7 ng/L (4-75) 6 ng/L (4-75) 6 ng/L (4-75) TU-Aif-T-Type Natriuretic Peptide 99 pg/mL (0-449) Total Protein 7.8 g/dL (6.4-8.2) Albumin 4.0 g/dL (3.4-5.0) Albumin/Globulin Ratio 1.1 (1.0-1.7) Lipase 125 U/L (73-393) Ethyl Alcohol Level 123 mg/dL (0-10) SARS-CoV-2 RNA (ROSE) Negative (Negative) SARS-CoV-2 Antigen (Rapid) Negative (NEGATIVE) Brief Hospital Course Mr Ricks is a 75 year old male with PMHx GERD, seasonal allergies, h/o TBI, and HTN presented to ED overnight on 09/04/2021 with chest pain. Patient states that he states that the chest pain is in the middle of his chest, not associated with diaphoresis, nausea, vomiting. Chest pain is not worse with exertion. Patient does have shortness of breath with this chest pain. And the chest pain is pleuritic. Patient did state that he had several beers today during the game and takes a PPI for hiatal hernia and GERD. He notes he stumbled while walking up his stairs and fell scraping his left and right elbows as well as his chin and fell right onto his chest on a stair his pain is in a distribution on his mid anterior left and right ribs worse with palpation and deep inspiration. /10. He did not strike his head, is not on any blood thinners, and he did not lose any consciousness. Patient states that this does feel slightly similar to when he had pneumonia in the past. Patient is vaccinated for COVID-19. Patient denies any cough, fever, chills, numbness, tingling. EKG appears sinus rhythm rate of 70 bpm left axis deviation, left anterior fascicular block, no acute ST segment elevations or T WI, QTC 437 Alcohol 123 at 0035, NA 130 6K4.2, BUN 9, CR 1.2, glucose 122, LFTs within normal laboratory limits high-sensitivity troponin VII, lactic acid 2.9, WBC 1 0.7, Hb 15.7, platelets 249, INR 1, rapid COVID-19 negative CTPA negative for pulmonary embolism, CT head and cervical spine no acute pulmonary intracranial abnormalities. Admitted for further care. Troponins trended out negative no telemetry events. Seen by cardiology. On repeat evaluation his chest pain resolved with 1 dose of 15 mg IV Toradol. Sent home with as needed tramadol and celecoxib. Repeat VS stable. HEENT: Head normocephalic, atraumatic. NECK: Supple LUNGS: Clear to auscultation. HEART: RRR, S1, S2 present, pulses intact ABDOMEN: Soft, positive bowel sounds. EXTREMITIES: No cyanosis or edema. NEUROLOGIC: Normal speech, normal tone PSYCHIATRIC: Normal affect, normal mood. SKIN: No ulceration. Problem list: Chest pain - seems to be costochondritis from traumatic fall, no fractures. Normal EKG and troponin, will trend out given his history. Treat GERD as well Lactic acidosis - likely due to dehydration related to ETOH Alcohol intoxication - will place on CIWA Bilateral elbow and chin abrasions - local wound care GERD with hiatal hernia - PPI Greater than 135 minutes spent on same day admit and d/c home. Discharge Information Condition at Discharge: Improved Follow Up: Weeks (1) Disposition/Orders: D/C to Home Scheduled Celecoxib (Celebrex) 100 Mg Capsule, 1 CAP PO BID for Osteoarthrititis for 30 Days, #60 Prescribed by: CECE SCHWARTZ MD on 09/05/21 1428 Naproxen Sodium (Aleve) 220 Mg Capsule, 220 MG PO BID for Pain, (Reported) Entered as Reported by: ANABEL SUMNER on 09/05/21642 Last Taken: Unknown Dose on Unknown Date & Time Last Action: New Order on 09/05/21642 by ANABEL SUMNER Primidone (Mysoline) 50 Mg Tablet, 2 TAB PO BID for Tremors for 30 Days, #120 Ref 0 (Reported) Entered as Reported by: ANABEL SUMNER on 09/05/21642 Last Taken: Unknown Dose on 09/04/21 Last Action: Continued on 09/05/21715 by CECE SCHWARTZ MD [Acid Certified Alcohol And Drug Counselor, equate] , 1 TAB PO BID for GERD, (Reported) Entered as Reported by: ANABEL SUMNER on 09/05/21642 Last Taken: Unknown Dose on 09/04/21 Last Action: New Order on 09/05/21642 by ANABEL SUMNER [Vit B] , 1 TAB PO DAILY for Suplement, (Reported) Entered as Reported by: ANABEL SUMNER on 09/05/21642 Last Taken: Unknown Dose on 09/04/21 Last Action: New Order on 09/05/21642 by ANABEL SUMNER [equate allery pill] , 1 TAB PO Q4HRS for Allergies, (Reported) Entered as Reported by: ANABEL SUMNER on 09/05/21642 Last Taken: Unknown Dose on 09/04/21 Last Action: New Order on 09/05/21642 by ANABEL SUMNER Scheduled PRN Tramadol Hcl (Tramadol Hcl) 50 Mg Tablet, 50 MG PO PRN Q6HRS PRN for PAIN for 6 Days, #20 Prescribed by: CECE SCHWARTZ MD on 09/05/21 1430 Justicifation of Admission Dx: Justifications for Admission: Justification of Admission Dx: Yes CECE SCHWARTZ MD Sep 05, 2021 14:35
--- NOTE | 2021-09-05 15:43 | NUR ---
Discharge instructions reviewed with pt. PIV and tele dc'd ptd. Flu shot given. Discharge instructions, education materials and all belongings sent with pt. Pt wheeled to personal vehicle.
--- NOTE | 2021-09-05 17:46 | CARD ---
MR#: [id number] Date of Study: 09/05/2021 Ordering Physician: LEONARDA CRUZ, Referring Physician: LEONARDA CRUZ, Tech: Surjit Key [facility] APPROVED REPORT EXAM: Two-dimensional and M-mode echocardiogram with Doppler and color Doppler. Other Information Quality : FairHR: 73bpm Rhythm : NSR INDICATION Chest Pain Chest pressure RISK FACTORS Hypertension Etoh 2D DIMENSIONS Left Atrium(2D)4.5 (1.6-4.0cm)IVSd1.0 (0.7-1.1cm) Aortic Root(2D)4.0 (2.0-3.7cm)LVDd5.4 (3.9-5.9cm) LVOT Diameter2.2 (1.8-2.4cm)PWd1.0 (0.7-1.1cm) LVDs3.1 (2.5-4.0cm)FS (%) 42.6 % SV104.6 ml Aortic Valve AoV Peak Josh.153.0cm/sAoV VTI32.6cm AO Peak GR.9.4mmHgLVOT VTI 22.36cm AO Mean GR.5mmHgAI P 1/2 [id number] Mitral Valve MV E Jxiidkux11.6cm/sMV E Peak Gr.2mmHg MV DECEL [id number] A Kbhtehnt76.9cm/s MV E Mean Gr.1mmHgE/A Ratio1.3 TDI Lateral E' P. V6.50cm/sMedial E' P. V8.24cm/s E/Lateral E'11.8E/Medial E'9.3 Tricuspid Valve TR P. [id number]/sTR Peak Gr.26mmHg Pulmonary Vein S1 Zyhpcago10.9cm/sS2 Jlgnjmot63.63cm/s D2 Cmfhftqs23.6cm/s LEFT VENTRICLE The left ventricle is normal size. There is borderline to mild concentric left ventricular hypertroph y. The left ventricular systolic function is normal and the ejection fraction is within normal range. LV ejection fraction is 55 to 60%. There is normal LV segmental wall motion. No left ventricle throm bus noted on this study. There is no ventricular septal defect visualized. There is no left ventricul ar aneurysm. There is no mass noted in the left ventricle. RIGHT VENTRICLE The right ventricle is normal size. There is normal right ventricular wall thickness. The right ventr icular systolic function is normal. ATRIA The left atrium is mildly dilated. The right atrium size is normal. The interatrial septum is intact with no evidence for an atrial septal defect or patent foramen ovale as noted on 2-D or Doppler imagi ng. AORTIC VALVE The aortic valve is normal in structure and function. Doppler and Color Flow revealed trace to mild a ortic regurgitation. There is no significant aortic valvular stenosis. There is no aortic valvular ve getation. MITRAL VALVE The mitral valve is normal in structure and function. There is no evidence of mitral valve prolapse. There is no mitral valve stenosis. Doppler and Color Flow revealed trace mitral valve regurgitation n oted. TRICUSPID VALVE The tricuspid valve is normal in structure and function. Doppler and Color Flow revealed no tricuspid valve regurgitation noted. There is no tricuspid valve prolapse or vegetation. There is no tricuspid valve stenosis. PULMONIC VALVE The pulmonary valve is normal in structure and function. Doppler and Color Flow revealed no pulmonic valvular regurgitation. There is no pulmonic valvular stenosis. GREAT VESSELS The aortic root is mildly dilated at (4.0cm) The proximal ascending aorta is mildly dilated. (4.0cm) The IVC is normal in size and collapses >50% with inspiration. PERICARDIAL EFFUSION There is no pleural effusion. There is no evidence of significant pericardial effusion. Critical Notification Critical Value: No <Conclusion> The left ventricle is normal size. The left ventricular systolic function is normal and the ejection fraction is within normal range. LV ejection fraction is 55 to 60%. There is borderline to mild concentric left ventricular hypertrophy. Doppler and Color Flow revealed trace to mild aortic regurgitation. There is no significant aortic valvular stenosis. Doppler and Color Flow revealed trace mitral valve regurgitation noted. Doppler and Color Flow revealed no tricuspid valve regurgitation noted. The aortic root is mildly dilated at (4.0cm) The proximal ascending aorta is mildly dilated. (4.0cm) Signed by : Darin Segovia MD Electronically Approved : 09/05/2021 17:46:10
[2021-09-05] MEDS ORDERED: PATCH REMOVAL. MC SCH (21:00)
== END 2021-09-05 15:47 | disposition home or self-care (01) | DRG 206 ==
LOC: ER 23:48 → 1 WEST ICU 09-05 04:13
PROVIDERS: ADMIT Internal Medicine; ATTEND Internal Medicine
DX: M94.0 Chondrocostal junction syndrome [Tietze] (principal); E87.2 Acidosis; R07.89 Other chest pain; E86.0 Dehydration; F10.120 Alcohol abuse with intoxication, uncomplicated; I10 Essential (primary) hypertension; I44.4 Left anterior fascicular block; K21.9 Gastro-esophageal reflux disease without esophagitis; K44.9 Diaphragmatic hernia without obstruction or gangrene; M43.12 Spondylolisthesis, cervical region; M48.00 Spinal stenosis, site unspecified; S00.81XA Abrasion of other part of head, initial encounter; W10.9XXA Fall (on) (from) unspecified stairs and steps, initial encounter; Y90.6 Blood alcohol level of 120-199 mg/100 ml; Y93.01 Activity, walking, marching and hiking; Z20.822 Contact with and (suspected) exposure to COVID-19; Z82.49 Family history of ischemic heart disease and other diseases of the circulatory system; Z87.01 Personal history of pneumonia (recurrent); Z87.820 Personal history of traumatic brain injury; Z87.891 Personal history of nicotine dependence; Z90.49 Acquired absence of other specified parts of digestive tract; Z96.653 Presence of artificial knee joint, bilateral; Z98.1 Arthrodesis status
CPT/HCPCS: 36415; 70450; 71275; 72125; 80053; 82553; 83605; 83690; 83735; 83880; 84484; 85025; 85610; 85730; 87040; 87426; 90471; 90686; 93005; 93306; 96365; 96375; 96376; C9113; G0480; J1885; J2405; J3010; J3411; J3490; J7030; Q9967; U0003; U0005; 99285-25; G0378